=== PATIENT | male | born 1960 | race Caucasian/White ===

== ENCOUNTER 2016-07-08 21:49 | Emergency (ER) | payer MEDICAID ==
[2015-07-30 01:48] VITALS: BMI 25.1
[~2016-07-08 21:49] MED LIST: ALBUTEROL0.63 MG/3 INH; ASPIRIN EC81 M1 PO; ASPIRIN EC81 MG PO; ATIVAN1 MG PO; DEMEROL50 MG PO; EFFIENT10 MG PO; HYDROCODONE-APA1 TAB PO; ISOSORBIDE DINI30 MG PO; METOPROLOL TART50 MG PO; NORCO 10/325 TA1 TA1 PO; PLAVIX75 MG PO; PRAVASTATIN SOD10 MG PO; PROAIR HFA8.5 GM INH; XANAX1 MG PO; ZESTRIL10 MG PO; ZOLOFT25 MG; [UNRECOGNIZED DRUG - REMARK]
[2016-07-08 22:25] LABS: BASOPHILS 0.4 % (0.0-2.0); EOSINOPHILS 1.9 % (0-7); HEMOGLOBIN 14.9 g/dL (13.5-17.5); IMMATURE GRANULOCYTES 0.1 % (0-5); LYMPHOCYTES 13.3 % (15-50); MCH 29.7 pg (26.0-34.0); MCHC 33.9 g/dL (31.0-37.0); MCV 87.6 fL (80.0-100.0); MEAN PLATELET VOLUME 11.3 fL (7.4-10.4); MONOCYTES 8.9 % (2-11); NEUTROPHILS 75.4 % (40-80); RBC 5.02 10x6/uL (4.20-6.10); RDW 14.5 % (11.5-14.5); WBC 7.2 10x3/uL (4.8-10.8)
[2016-07-08 22:27] LABS: PLATELET COUNT 154 10x3/uL (130-400)
[2016-07-08 22:53] LABS: ALBUMIN 3.7 g/dL (3.4-5.0); ALKALINE PHOSPHATASE 65 U/L (46-116); ALT (SGPT) 20 U/L (10-68); BILIRUBIN - TOTAL 0.14 mg/dL (0.2-1.3); CALC OSMOLALITY 280 mosm/kg (275-300); CALCIUM 8.8 mg/dL (8.5-10.1); CHLORIDE - SERUM 104 mmol/L (98-107); CREATININE - SERUM 1.1 mg/dL (0.6-1.3); GLUCOSE 114 mg/dL (74-106); PROTEIN - SERUM 7.1 g/dL (6.4-8.2); SODIUM 140 mmol/L (136-145); UREA NITROGEN 16 mg/dL (7-18); eGFR NON AFRICAN AMERICAN 73 mL/min (90-120)
[2016-07-08 22:56] LABS: CHOL - HDL RATIO 5.6 ratio (2.3-4.9); CHOLESTEROL, TOTAL 201 mg/dL (0-200); CKMB 0.9 U/L (0.0-3.6); CREATINE KINASE 93 UL (21-232); HDL CHOLESTEROL 36 mg/dL (32-96); LDL CHOLESTEROL 130 mg/dL (0-100); LDL-HDL RATIO 3.6 ratio (1.5-3.5); TRIGLYCERIDE 176 mg/dL (30-200)
[2016-07-08 22:58] LABS: TROPONIN-I < 0.017 ng/mL (0.000-0.060)
== END 2016-07-08 23:56 | disposition home or self-care (01) ==
LOC: D.ER 21:49
PROVIDERS: Emergency Medicine
DX: R07.9 Chest pain, unspecified (principal); J40 Bronchitis, not specified as acute or chronic; I50.9 Heart failure, unspecified; J44.9 Chronic obstructive pulmonary disease, unspecified; F17.200 Nicotine dependence, unspecified, uncomplicated

== ENCOUNTER 2016-07-18 10:50 | Emergency (ER) | payer MEDICAID ==
[2015-07-30 01:48] VITALS: BMI 25.1
== END 2016-07-18 12:38 | disposition home or self-care (01) ==
LOC: D.ER 10:50
DX: S30.862A Insect bite (nonvenomous) of penis, initial encounter (principal); J44.9 Chronic obstructive pulmonary disease, unspecified; Z95.5 Presence of coronary angioplasty implant and graft

== ENCOUNTER → 2016-12-11 08:25 | Outpatient (CLI) | payer MEDICAID ==
[~2016-12-11] VITALS: Ht 175.3 cm; Wt 75.0 kg
--- NOTE | ~2016-12-11 | HEMODYNAMI ---
PATIENT:JUNO CARRION MEDICAL RECORD: [id number] : 56 LOCATION:[facility] ADMISSION DATE: 12/11/16 Generatedon:12/11/201610:43 Patient name: JUNO CARRION Patient #: [id number] SSN: DO B: 1960 Date of study: 12/11/2016 Page: Of Hemodynamic Procedure Report Patient Data Patient Demographics Procedure consent was obtained First Name: JUNO Gender: Male Last Name: MURALI : 1960 Middle Initial: S Age: 56 year(s) Patient #: [id number] Race: Additional ID: [id number] Contact details Address: [address] [place] [address] State: [place] City: [facility] Zip code: [address] Past Medical History Allergies Allergen Reaction Date Comments Reported Demerol 07/06/2014 Other allergy 01/23/2015 Polyester Other allergy 12/11/2016 demerol Admission Admission Data Admission Date: 12/11/2016 Admission Time: 8:25 Admit Source: Other Height (in.): 70 BSA: 1.88 (m2) Height (cm.): 177.8 BMI: 22.53 (kg/m2) Weight (lbs.): 157 Weight (kg.): 71.21 Lab Results Lab Result Date: 12/11/2016 Lab Result Time: 0:00 CBC Name Units Result Min Max Hemoglobin g/dl 15.7 --(--*-)-- 13.5 17.5 Procedure Procedure Types Cath Procedure Diagnostic Procedure LHC LHC w/Coronaries PCI Procedure Coronary Stent Initial Miscellaneous Procedures Moderate Sedation up to 15 minutes Procedure Description Procedure Date Procedure Date: 12/11/2016 Procedure Start Time: 10:22 Procedure End Time: 10:40 Procedure Staff Name Function Konrad Logan MD Performing Physician Lynne Estrada RT Scrub Paulie Maher RN Nurse Jaqueline Maher RT Monitor Procedure Data Cath Procedure Fluoroscopy Diagnostic fluoroscopy Total fluoroscopy Time: 4.1 time: 4.1 min min Diagnostic fluoroscopy Total fluoroscopy dose: 574 dose: 574 mGy mGy Contrast Material Contrast Material Type Amount (ml) Isovue 300 88 Entry Location Entry Primary Successful Side Size Upsize Upsize Entry Closure Hernandez ccessful Closure Location (Fr) 1 (Fr) 2 (Fr) Remarks Device Remarks Radial Right 6 Fr Mechanical tr b artery Short Compression Diagnostic catheters Device Type Used For End Catheter Placement Diagnostic Terumo 5Fr Procedure [place] 110cm catheter Procedure Complications No complications Procedure Medications Medication Administration Route Dosage Oxygen NC 2 l/min Lidocaine 2% added to field 20 Heparin Flush Bag added to field 2 bags (1000units/500ml NS) 0.9% NaCl I.V. 100 ml/hr Radial Cocktail I.A. 1 syringe (Verapomil 2mg/Nitro 400mcg/Heparin 1500units) Versed I.V. 2 mg Fentanyl I.V. 100 mcg Versed I.V. 2 mg Fentanyl I.V. 100 mcg Heparin Bolus I.V. 4000 units Integrilin (Bolus I.V. 6.8 ml 2mg/ml) Versed I.V. 1 mg Fentanyl I.V. 50 mcg Plavix P.O. 600 mg Hemodynamics Rest BSA: 1.88 (m2) HGB: 15.7 (g/dl) O2 Consumption: Estimated: 225.38 (ml/min) O2 Co nsumption indexed: Estimated:119.88 (ml/min/m) Heart Rate: 75 (bpm) Snapshots Pre Cath Intra NCS Post Cath Vital Signs Time Heart Resp SPO2 NIBP (mmHg) Rhythm Pain Sedation Rate (ipm) (%) Status Level (bpm) 9:45:37 76 18 98 161/104(133) NSR 0 (11) 10(A) , No pain 9:49:43 71 18 96 164/104(140) NSR 0 (11) 10(A) , No pain 9:53:59 74 17 94 140/98(115) NSR 0 (11) 10(A) , No pain 9:58:11 68 18 96 132/81(100) NSR 0 (11) 10(A) , No pain 10:02:22 71 19 97 132/76(108) NSR 0 (11) 10(A) , No pain 10:06:30 74 17 97 127/82(104) NSR 0 (11) 10(A) , No pain 10:10:40 73 15 97 122/75(93) NSR 0 (11) 10(A) , No pain 10:14:44 73 16 97 119/82(95) NSR 0 (11) 10(A) , No pain 10:18:48 71 17 96 115/79(95) NSR 0 (11) 10(A) , No pain 10:22:51 74 15 95 115/76(91) NSR 0 (11) 10(A) , No pain 10:26:57 76 16 94 94/70(82) NSR 0 (11) 9(A) , No pain 10:30:59 78 16 94 103/60(72) NSR 0 (11) 9(A) , No pain 10:35:03 77 17 95 106/66(83) NSR 0 (11) 9(A) , No pain 10:39:04 77 16 96 105/72(87) NSR 0 (11) 10(A) , No pain Medications Time Medication Route Dose Verified Delivered Reason Note s Effectiveness by by 9:44:55 Oxygen NC 2 l/min Konrad Buffie used for Desmond Maher RN procedure 9:45:00 Lidocaine 2% added 20ml Konrad Buffie used for to vial Desmond Maher RN procedure field 9:45:06 Heparin Flush added 2 bags Konrad Buffie used for Bag to Desmond Maher RN procedure (1000units/500ml field NS) 9:45:14 0.9% NaCl I.V. 100 Konrad Buffie Per physician ml/hr Desmond Maher RN 10:20:13 Versed I.V. 2 mg Konrad Buffie for sedation Desmond Maher RN 10:20:18 Fentanyl I.V. 100 mcg Konrad Buffie for sedation Desmond Maher RN 10:24:22 Versed I.V. 2 mg Konrad Buffie for sedation Desmond Maher RN 10:24:26 Fentanyl I.V. 100 mcg Konrad Buffie for sedation Desmond Maher RN 10:25:15 Radial Cocktail I.A. 1 Konrad Konrad for (Verapomil syringe Desmond Logan MD vasodilation 2mg/Nitro 400mcg/Heparin 1500units) 10:28:16 Versed I.V. 1 mg Konrad Apodaca for sedation Desmond Maher RN 10:28:20 Fentanyl I.V. 50 mcg Konrad Apodaca for sedation Desmond Maher RN 10:30:56 Heparin Bolus I.V. 4000 Konrad Apodaca for veri fied units Desmond Maher RN anticoagulation with dr logan 10:32:38 Integrilin I.V. 6.8 ml Konrad donohue wast ed (Bolus 2mg/ml) Desmond Maher RN antiplatelet 3.2 ml therapy of vial 10:39:29 Plavix P.O. 600 mg Konrad Maher RN antiplatelet therapy Procedure Log Time Note 9:30:59 Admit Source: Other 9:31:14 Patient Height : 177.8 cm 9:31:21 Patient Weight : 71.21 kg 9:32:32 Diagnostic Cath status Elective 9:32:34 Paulie Maher RN sent for patient. Start room use. 9:32:36 Time tracking: Regular hours 9:32:41 Plan of Care:Hemodynamics will remain stable., Cardiac rhythm will remain stable., Comfort level will be maintained., Respiratory function will remain adequate., Patient/ family verbilizes understanding of procedure., Procedure tolerated without complication., Recovers from procedure without complications.. 9:40:41 Patient received from Pre/Post Procedure Room to CCL 2 Alert and oriented. Tansferred to table in Supine position. 9:44:55 Oxygen 2 l/min NC was administered by Paulie Maher RN; used for procedure; 9:45:00 Lidocaine 2% 20ml vial added to field was administered by Paulie Maher RN; used for procedure; 9:45:06 Heparin Flush Bag (1000units/500ml NS) 2 bags added to field was administered by Paulie Maher RN; used for procedure; 9:45:14 0.9% NaCl 100 ml/hr I.V. was administered by Paulie Maher RN; Per physician; 9:48:30 Warm blankets applied, and angel hugger turned on for patient comfort. 9:48:30 Correct patient and procedure confirmed by team. 9:48:32 Signed procedure consent form obtained from patient. 9:48:33 ECG and BP/O2 sat monitors applied to patient. 9:48:37 Vital chart was started 9:48:38 Baseline sample Acquired. 9:48:43 Rhythm: sinus rhythm 9:48:45 Full Disclosure recording started 9:49:03 H&P Date Dictated: 12/05/2016 Within 30 days and on chart., H&P Addendum completed by physician on day of procedure. (MUST COMPLETE FOR ALL OUTPATIENTS). 9:49:05 Pre-procedure instructions explained to patient. 9:49:08 Pre-op teaching completed and patient verbalized understanding. 9:49:09 Family in waiting room. 9:49:11 Patient NPO since Midnight. 9:49:29 Patient allergic to Other allergydemerol 9:49:32 Is the patient allergic to Iodine/contrast media? No. 9:49:37 Snore? Yes 9:49:41 Dentures? No ? 9:49:56 Airway obstruction? Yes COPD, ASTHMA 9:50:05 Is patient on blood thinner?No 9:50:07 Patient diabetic? No. 9:50:12 Sleep apnea? No 9:50:40 Patient pain scale 0/10 ?. 9:50:46 IV patent on arrival in left forearm with 0.9% NaCl at [facility]. 9:54:17 Lab Result : Hemoglobin 15.7 g/dl 9:56:12 Lab results completed and on chart. 9:56:17 Right Radial & Left Groin area was prepped with chlora-prep and draped in sterile fashion 9:56:19 Alarms reviewed by R. N. 9:56:20 Sharps counted by scrub and verified by R.N. 9:56:21 Physician paged 9:56:22 Physician arrived 9:56:28 Use device set Radial Dx 9:56:30 Acist Syringe opened to sterile field. 9:56:30 Medline Cath Pack opened to sterile field. 9:56:31 Bag Decanter opened to sterile field. 9:56:32 St Lyle 260cm J .035 wire opened to sterile field. 9:56:32 Acist Hand Control opened to sterile field. 9:56:32 Acist Manifold opened to sterile field. 9:56:33 Tegaderm 4 x 4 opened to sterile field. 9:56:33 MBrace Wrist Support opened to sterile field. 9:56:36 Terumo 6Fr Slender Glidesheath opened to sterile field. 9:57:36 Zero performed for pressure channel P1 10:: --------ALL STOP TIME OUT------ ::03 Final Timeout: patient, procedure, and site verified with staff and physician. All members of the team are in agreement. 10:20:06 Left Radial & Left Groin site verified by team. 10:20: Physical assessment completed. ASA score P 2 - A patient with mild systemic disease as per Konrad Logan MD. :: Versed 2 mg I.V. was administered by Paulie Maher RN; for sedation; :: Sedation plan: IV Moderate Sedation Versed, Fentanyl 10::18 Fentanyl 100 mcg I.V. was administered by Paulie Maher RN; for sedation; :: Procedure started. 10:: Local anesthetic to right radial artery with Lidocaine 2% by Konrad Logan MD.INITIAL ACCESS ONLY 10::33 A 6 Fr Short sheath was inserted into the Right Radial artery 10:: Versed 2 mg I.V. was administered by Paulie Maher RN; for sedation; :: Fentanyl 100 mcg I.V. was administered by Paulie Maher RN; for sedation; 10:25:15 Radial Cocktail (Verapomil 2mg/Nitro 400mcg/Heparin 1500units) 1 syringe I.A. was administered by Konrad Logan MD; for vasodilation; 10:25: A Diagnostic Tower Paddle Boardsumo 5Fr [place] 110cm catheter was advanced over the wire and used for Procedure. 10:25:31 LV gram done using ALATORRE 10::22 EF : 55 % 10::25 LCA angiography performed. 10:27:13 RCA angiography performed. 10:28:16 Versed 1 mg I.V. was administered by Paulie Maher RN; for sedation; ::20 Fentanyl 50 mcg I.V. was administered by Paulie Maher RN; for sedation; 10::56 Catheter removed. 10:30:45 Merit BasixCompak Inflation Kit opened to sterile field. 10:30:46 [place] Sci Choice PT Extra Support J 300cm .014 gu opened to sterile field. 10:30:46 Q-Layertronic Launcher 6Fr AR 2.0 guide catheter opened to sterile field. 10:30:51 Proceeding to intervention. 10:30:56 Heparin Bolus 4000 units I.V. was administered by Paulie Maher RN; for anticoagulation; verified with dr logan 10:31:00 6 Fr AR 2 guide catheter was inserted over the wire 10:32:38 Integrilin (Bolus 2mg/ml) 6.8 ml I.V. was administered by Paulie Maher RN; for antiplatelet therapy; wasted 3.2 ml of vial 10:33:46 choice pt wire advanced. 10:33:48 Wire advanced across lesion. 10:34:35 Inflation Number: 1 A [place] OTW 3.0 x 12 stent was prepped and advanced across the Mid RCA. The stent was deployed at 21 JOSEPHINE for 0:10 (min:sec). 10:35:31 Stent catheter was removed intact over wire. 10:35:32 Wire removed. 10:35:32 Guide catheter removed. 10:36:15 Procedure ended.(Physican Out) 10:36:30 Fluoroscopy time 04.10 minutes. 10:36:36 Fluoroscopy dose: 574 mGy 10:36:36 Flurop Dose total: 574 10:36:40 Contrast amount:Isovue 300 88ml. 10:36:41 Sharps counted by scrub and verified by R.N. 10:36:51 Insertion/operative site no bleeding no hematoma. 10:37:10 Terumo TR Band Standard opened to sterile field. 10:37:35 Sheath removed intact; hemostasis achieved with Mechanical Compression to the Right Radial artery. 10:38:12 TR band inflated with 12cc of air. 10:38:19 Post Procedure Pulses reassessed and unchanged 10:38:25 Post-procedure physical assessment completed. ASA score P 2 - A patient with mild systemic disease as per Konrad Logan MD. 10:38:33 Post procedure rhythm: sinus rhythm 10:38:36 Post procedure instruction explained to patient.Patient verbalizes understanding. 10:39:05 Procedure type changed to Cath procedure, Diagnostic procedure, LHC, LHC w/Coronaries, PCI procedure, Coronary Stent Initial, Miscellaneous Procedures, Moderate Sedation up to 15 minutes 10:39:27 Procedure and supply charges have been captured, reviewed, submitted and are correct. 10:39:29 Plavix 600 mg P.O. was administered by Paulie Maher RN; for antiplatelet therapy; 10:39:52 Procedure Complication : No complications 10:39:55 Vital chart was stopped 10:39:55 See physician's report for complete and final results. 10:39:59 Patient transfered to Pre/Post Procedure Room with Stretcher. 10:40:01 Procedure ended. 10:40:01 Full Disclosure recording stopped 10:40:17 End room use (Document Last) 10:40:23 ACC-PCI Only Patient was given prescriptions, or instructed by Konrad Logan MD to start/continue the following medications upon discharge: Plavix Intervention Summary Intervention Notes Time ActionType Lesion and Equipment Action# Pressure Duration Attributes Used 10:34:35 Place stent Mid RCA Edmundo OTW 1 21 00:10 3.0 x 12 stent Device Usage Item Name Manufacture Quantity Catalog Number Hospital Part Current Minim al Lot# / Charge Number Stock Stock Serial# Code Acist Acist 1 [id number] [id number] 112686 434605 20 Syringe Medical Systems Inc Medline Cardinal 1 [id number] 656076 42809 425846 5 Cath Pack Health Bag Microtek 1 2002S 921182 80529 164051 [address] Lyle St Lyle 1 252899 309983 451036 141493 30 260cm J .035 wire Acist Hand Acist 1 94597 361038 827832 872598 5 Control Medical Systems Inc Acist Acist 1 17742 289706 282168 981234 5 Manifold Medical Systems Inc Tegaderm 4 3M 1 1626W 540668 079277 426719 5 x 4 MBrace Advanced 1 140-0250-00 619842 92250 543419 5 Wrist Vascular Support Dynamics Terumo 6Fr Terumo 1 [id number] 790327 505604 368534 40 Slender Glidesheath Diagnostic Terumo 1 72-9118 842260 609651 947724 5 Terumo 5Fr [place] 110cm catheter Merit Merit 1 [id number] 885336 804533 205139 15 BasixCvergenx Medical Inflation Kit [place] Sci [place] 1 [id number] 410399 065855 656653 5 Choice PT Scientific Extra Support J 300cm .014 gu Medtronic Medtronic 1 [id number] 553686 45311 486532 1 Launcher 6Fr AR 2.0 guide catheter Marietta OTW Medtronic 1 [id number] 608332 993390 140131 5 [id number] 3.0 x 12 stent Terumo TR Terumo 1 [id number] 859966 412467 045399 40 Band Standard Signature Audit [place] Stage Time Signature Unsigned Intra-Procedure 12/11/2016 Jaqueline Maher 10:43:05 AM RT(R) Signatures Monitor : Jaqueline Maher Signature : RT Date : Time : [facility] [address] [id number]
--- NOTE | ~2016-12-11 | OP ---
PATIENT NAME: JUNO CARRION MEDICAL RECORD: [id number] :56 LOCATION:D.[facility] ADMISSION DATE: SURGEON: TRESSA NUNEZ MD DATE OF OPERATION: 12/11/2016 PROCEDURES: 1. PTCA stent RCA. 2. Selective coronary angiography. 3. Left heart catheterization. 4. Left ventriculogram. INDICATION: Angina and coronary artery disease. PROCEDURE IN DETAIL: After informed consent was obtained and after a detailed explanation of risks, benefits as well as alternative therapies, the patient elected to proceed with angiogram and angioplasty. The right radial area was prepped and draped in normal sterile fashion. The right radial artery was cannulated via modified Seldinger technique with placement of 6-Bolivian sheath. All catheters exchanged through this sheath. FINDINGS: The left ventriculogram was performed in standard 30-degree ALATORRE view, reveals preserved cardiac wall motion, ejection fraction estimated 60%. SELECTIVE CORONARY ANGIOGRAPHY: 1. Left main showed no significant angiographic disease. 2. Left anterior descending has previously placed stent, stent is widely patent with no significant restenosis. No disease elsewise. 3. The left circumflex shows moderate irregularities, but no flow-limiting stenosis. 4. The right coronary has previously placed stents with up to 70% in-stent restenosis in the mid vessel. PTCA STENT OF THE RIGHT CORONARY: The stent used was 3.0 x 12 mm Kiefer. Result was 0% residual stenosis. OVERALL IMPRESSION: Successful percutaneous transluminal coronary angioplasty stent of the RCA going from 70% in-stent restenosis to 0% residual stenosis. TRANSINT:[id number] Voice Confirmation ID: [id number] DOCUMENT ID: [id number] TRESSA NUNEZ MD CC: [id number] DICTATION DATE: 12/11/16 1039 GENERAL LABORER: 12/11/16 1049 REG [facility] [address] [place] [address]
[2016-12-11 09:09] VITALS: BP 147/89; Ht 175.3 cm; Wt 75.0 kg
[2016-12-11 09:25] LABS: BASOPHILS 0.6 % (0-2); EOSINOPHILS 1.6 % (0-7); HEMATOCRIT 46.1 % (42.0-54.0); HEMOGLOBIN 15.7 g/dL (13.5-17.5); IMMATURE GRANULOCYTES 0.1 % (0-5); LYMPHOCYTES 24.1 % (15-50); MCHC 34.1 g/dL (31.0-37.0); MCV 88.1 fL (80.0-100.0); MEAN PLATELET VOLUME 11.3 fL (7.4-10.4); MONOCYTES 7.5 % (2-11); NEUTROPHILS 66.1 % (40-80); PLATELET COUNT 173 10x3/uL (130-400); RBC 5.23 10x6/uL (4.20-6.10); RDW 14.4 % (11.5-14.5); WBC 6.7 10x3/uL (4.8-10.8)
--- NOTE | 2016-12-11 09:40 | NUR ---
0940 HOLD Beneq. PT TOOK OWN DOSE OF XANAX THIS AM PRIOR TO ARRIVAL.
[2016-12-11 09:43] LABS: CALC OSMOLALITY 286 mosm/kg (275-300); CALCIUM 9.1 mg/dL (8.5-10.1); CARBON DIOXIDE 27.1 mmol/L (21.0-32.0); CHLORIDE - SERUM 106 mmol/L (98-107); CREATININE - SERUM 0.9 mg/dL (0.6-1.3); GLUCOSE 100 mg/dL (74-106); POTASSIUM - SERUM 4.5 mmol/L (3.5-5.1); SODIUM 143 mmol/L (136-145); UREA NITROGEN 18 mg/dL (7-18); eGFR NON AFRICAN AMERICAN > 90 mL/min (90-120)
--- NOTE | 2016-12-11 11:19 | NUR ---
1115 SITTING UP IN BED EATING TURKEY TRAY AND SIPPING SODA. R WRIST TR BAND C/D/I WITH NO HEMATOMA OR BLEEDING. NSR RATE 75 W NO C/O CHEST PAIN. PULSES PALP X 4.
--- NOTE | 2016-12-11 13:51 | NUR ---
1145 RESTING WITH EYES CLOSED. R WRIST TR BAND C/D/I WITH NO HEMATOMA OR BLEEDING. 1230 SITTING UP IN BED. R WRIST TR REMAINS C/D/I. VITALS ALL WNL
--- NOTE | 2016-12-11 14:08 | NUR ---
2CC AIR REMOVED FROM R WRIST TR BAND. WILL MONITOR FOR BLEEDING/HEMATOMA.
--- NOTE | 2016-12-11 14:26 | NUR ---
2CC AIR REMOVED FROM R WRIST TR BAND, PIV REMOVED FROM LEFT HAND WITH BANDAID APPLIED.
--- NOTE | 2016-12-11 14:43 | NUR ---
REMAINDER OF AIR REMOVED FROM R WRIST TR BAND. TEGADERM AND 2X2 APPLIED. BRACE REMAINS IN PLACE. D/C INSTRUCTIONS DISCUSSED WITH PATIENT, VERABLIZED UNDERSTANDING. WHEELED OUT VIA WHEELCHAIR.
== END | disposition home or self-care (01) ==
LOC: D.CATH 08:25
PROVIDERS: Internal Medicine Interventional Cardiology
DX: I25.119 Atherosclerotic heart disease of native coronary artery with unspecified angina pectoris (principal); I10 Essential (primary) hypertension; F17.200 Nicotine dependence, unspecified, uncomplicated; Z01.812 Encounter for preprocedural laboratory examination

== ENCOUNTER 2017-01-27 05:38 | Emergency (ER) | payer MEDICAID ==
[2016-12-11 09:09] VITALS: BMI 24.4
[2017-01-27 06:37] LABS: UDS - AMPHET NEGATIVE QUAL (NEGATIVE); UDS - BARB NEGATIVE QUAL (NEGATIVE); UDS - BENZO POSITIVE QUAL (NEGATIVE); UDS - COCAINE NEGATIVE QUAL (NEGATIVE); UDS - OPIATE NEGATIVE QUAL (NEGATIVE); UDS - PCP NEGATIVE QUAL (NEGATIVE); UDS - THC POSITIVE QUAL (NEGATIVE)
[2017-01-27 06:50] LABS: BASOPHILS 0.6 % (0-2); EOSINOPHILS 1.9 % (0-7); HEMATOCRIT 46.4 % (42.0-54.0); HEMOGLOBIN 15.3 g/dL (13.5-17.5); IMMATURE GRANULOCYTES 0.1 % (0-5); LYMPHOCYTES 22.8 % (15-50); MCH 29.6 pg (26.0-34.0); MCV 89.7 fL (80.0-100.0); MEAN PLATELET VOLUME 11.2 fL (7.4-10.4); MONOCYTES 7.2 % (2-11); NEUTROPHILS 67.4 % (40-80); RBC 5.17 10x6/uL (4.20-6.10); RDW 14.6 % (11.5-14.5); WBC 6.8 10x3/uL (4.8-10.8)
[2017-01-27 06:56] LABS: APPEARANCE CLEAR (CLEAR); COLOR YELLOW (YELLOW); GLUCOSE 50 mg/dL (NEGATIVE); KETONE SMALL mg/dL (NEGATIVE); NITRITE NEGATIVE (NEGATIVE); PROTEIN 1+ mg/dL (NEGATIVE); SPECIFIC GRAVITY 1.015 (1.005-1.020)
[2017-01-27 06:57] LABS: BACTERIA FEW /hpf (NONE SEEN); BILIRUBIN NEGATIVE (NEGATIVE); EPITHELIAL CELLS RARE /hpf (0-5); MUCUS <1+ /lpf (NONE SEEN); RED CELLS - URINE 0-5 /hpf (0-5); UROBILINOGEN NORMAL (NORMAL); WHITE CELLS - URINE 0-5 /hpf (0-5)
[2017-01-27 07:03] LABS: PLATELET COUNT 220 10x3/uL (130-400)
[2017-01-27 07:08] LABS: INR 0.86 (0.85-1.17); PROTIME 11.6 SECONDS (11.6-15.0)
[2017-01-27 07:12] LABS: ALBUMIN 3.7 g/dL (3.4-5.0); ANION GAP 7.8 mmol/L (8-16); BILIRUBIN - TOTAL 0.18 mg/dL (0.2-1.3); CARBON DIOXIDE 30.6 mmol/L (21.0-32.0); CREATININE - SERUM 1.1 mg/dL (0.6-1.3); MAGNESIUM - SERUM 2.2 mg/dL (1.8-2.4); POTASSIUM - SERUM 4.4 mmol/L (3.5-5.1); PROTEIN - SERUM 7.2 g/dL (6.4-8.2)
== END 2017-01-27 07:50 | disposition left against medical advice (07) ==
LOC: D.ER 05:38
PROVIDERS: Emergency Medicine
DX: S09.90XA Unspecified injury of head, initial encounter (principal); W17.89XA Other fall from one level to another, initial encounter; Y93.89 Activity, other specified; Y92.89 Other specified places as the place of occurrence of the external cause; R51 Headache; J44.9 Chronic obstructive pulmonary disease, unspecified; F17.200 Nicotine dependence, unspecified, uncomplicated

== ENCOUNTER 2017-02-27 10:32 | Emergency (ER) | payer MEDICAID ==
[2016-12-11 09:09] VITALS: BMI 24.4
== END 2017-02-27 12:17 | disposition home or self-care (01) ==
LOC: D.ER 10:32
DX: Z91.81 History of falling (principal); R51 Headache; Z86.79 Personal history of other diseases of the circulatory system; F17.200 Nicotine dependence, unspecified, uncomplicated; J44.9 Chronic obstructive pulmonary disease, unspecified

== ENCOUNTER 2017-04-05 08:33 | Emergency (ER) | payer MEDICAID ==
[2016-12-11 09:09] VITALS: BMI 24.4
[2017-04-05 09:20] LABS: BASOPHILS 0.7 % (0-2); EOSINOPHILS 1.6 % (0-7); HEMATOCRIT 45.7 % (42.0-54.0); HEMOGLOBIN 15.6 g/dL (13.5-17.5); IMMATURE GRANULOCYTES 0.1 % (0-5); LYMPHOCYTES 29.4 % (15-50); MCH 29.9 pg (26.0-34.0); MCHC 34.1 g/dL (31.0-37.0); MCV 87.7 fL (80.0-100.0); MEAN PLATELET VOLUME 11.5 fL (7.4-10.4); MONOCYTES 6.6 % (2-11); NEUTROPHILS 61.6 % (40-80); PLATELET COUNT 209 10x3/uL (130-400); RBC 5.21 10x6/uL (4.20-6.10); WBC 7.1 10x3/uL (4.8-10.8)
[2017-04-05 09:38] LABS: ALBUMIN 3.8 g/dL (3.4-5.0); ALKALINE PHOSPHATASE 74 U/L (46-116); ALT (SGPT) 16 U/L (10-68); BILIRUBIN - TOTAL 0.32 mg/dL (0.2-1.3); CALC OSMOLALITY 277 mosm/kg (275-300); CALCIUM 9.2 mg/dL (8.5-10.1); CHLORIDE - SERUM 102 mmol/L (98-107); GLUCOSE 145 mg/dL (74-106); PROTEIN - SERUM 7.3 g/dL (6.4-8.2); SODIUM 137 mmol/L (136-145); UREA NITROGEN 15 mg/dL (7-18); eGFR NON AFRICAN AMERICAN 81 mL/min (90-120)
[2017-04-05 09:39] LABS: POTASSIUM - SERUM 4.2 mmol/L (3.5-5.1)
[2017-04-05 09:50] LABS: CHOL - HDL RATIO 4.6 ratio (2.3-4.9); CHOLESTEROL, TOTAL 196 mg/dL (0-200); CKMB 0.7 U/L (0.0-3.6); CREATINE KINASE 97 UL (21-232); HDL CHOLESTEROL 43 mg/dL (32-96); LDL CHOLESTEROL 142 mg/dL (0-100); LDL-HDL RATIO 3.3 ratio (1.5-3.5); TRIGLYCERIDE 58 mg/dL (30-200)
[2017-04-05 09:51] LABS: TROPONIN-I < 0.017 ng/mL (0.000-0.060)
== END 2017-04-05 10:55 | disposition home or self-care (01) ==
LOC: D.ER 08:33
PROVIDERS: Emergency Medicine
DX: I25.10 Atherosclerotic heart disease of native coronary artery without angina pectoris (principal); R07.9 Chest pain, unspecified; H57.11 Ocular pain, right eye; J44.9 Chronic obstructive pulmonary disease, unspecified; F17.200 Nicotine dependence, unspecified, uncomplicated

== ENCOUNTER 2017-07-11 22:07 | Emergency (ER) | payer MEDICAID ==
[2016-12-11 09:09] VITALS: BMI 24.4
== END 2017-07-12 01:15 | disposition home or self-care (01) ==
LOC: D.ER 22:07
DX: M50.30 Other cervical disc degeneration, unspecified cervical region (principal); J44.9 Chronic obstructive pulmonary disease, unspecified; I25.10 Atherosclerotic heart disease of native coronary artery without angina pectoris; F17.200 Nicotine dependence, unspecified, uncomplicated

== ENCOUNTER 2017-08-09 02:51 | Observation (INO) | payer MEDICAID ==
[~2017-08-09] VITALS: Ht 175.3 cm; Wt 65.8 kg
--- NOTE | ~2017-08-09 | HP ---
PATIENT: JUNO MCDONALD MEDICAL RECORD: [id number] ACCOUNT: [id number] LOCATION:[facility].2113 : 56 ADMISSION DATE: 08/09/17 HISTORY AND PHYSICAL EXAMINATION ADMITTING DIAGNOSES: 1. Angina, chronic, stable. 2. Hypertension. 3. Coronary artery disease. 4. Previous PTCA stent. 5. Hypertension. 6. COPD. 7. Smoking history. 8. Chronic neck pain. HISTORY OF PRESENT ILLNESS: Mr. Mcdonald presents with chest pain. It was secondary to his neck pain. With the neck pain, his hypertension goes up. He has been out of his pain medications for his neck. With pain medication, his neck pain resolved. His blood pressure went down. His chest pain resolved. He has no EKG changes. Troponin is normal. PHYSICAL EXAMINATION: GENERAL APPEARANCE: Well-nourished, well-developed, appears stated age. Level of distress, comfortable. PSYCHIATRIC: Mental status, alert, normal affect. Orientation, oriented to time, place and person. EYES: Lids and conjunctiva, noninjected. No discharge, no pallor. ENT: Lips, teeth, gums, normal dentition. Oropharynx, no cyanosis, no pallor. NECK: Carotid arteries, bilateral normal upstroke, no bruits, no thrills. JUGULAR VEINS: No jugular venous pressure or distention. CERVICAL LYMPH NODES: Nontender, nonenlarged. THYROID: Not enlarged. Nontender. No nodules. LUNGS: Respiratory effort, unlabored. CHEST: Normal curvature. No thoracic deformity. No chest wall tenderness. Percussion, resonant. Auscultation, clear. No wheezes, no rales, no rhonchi. CARDIOVASCULAR: Precordial exam, nondisplaced. No heaves or pericardial thrills. Rate and rhythm, regular. Heart sounds, normal S1, normal S2. No S3, no gallop, no rub. Systolic murmur, not heard. Diastolic murmur, not heard. EXTREMITIES: No cyanosis, no edema. Peripheral pulses, full and equal in all extremities, except as noted. No bruits appreciated. ABDOMEN: Soft, nondistended. Normal aorta. No bruit. Nontender. No masses. Liver, nontender, no hepatomegaly. Spleen, nontender, no splenomegaly. MUSCULOSKELETAL: No joint tenderness. No joint swelling. No erythema. NEUROLOGICAL: Normal gait, normal strength, normal tone. SKIN: Warm and dry. OVERALL IMPRESSION: Chest pain related to hypertension from his neck pain. At this time, we will just reinstate his [place] for temporary prescription. Follow up with [facility] as previously scheduled. TRANSINT:[id number] Voice Confirmation ID: [id number] DOCUMENT ID: [id number] HISTORY AND PHYSICAL [id number] JUNO MCDONALD JEFFREY MD at 1629 CC: [id number] DICTATION DATE: 08/09/17 08 CATTLE BROKER: 08/09/17 1145 DIS IN 08/09/17 [place] [address] [id number] [place] [id number]
[2017-08-09 03:18] LABS: BASOPHILS 1.1 % (0-2); EOSINOPHILS 3.2 % (0-7); HEMATOCRIT 48.1 % (42.0-54.0); HEMOGLOBIN 16.3 g/dL (13.5-17.5); IMMATURE GRANULOCYTES 0.1 % (0-5); LYMPHOCYTES 28.1 % (15-50); MCH 29.8 pg (26.0-34.0); MCHC 33.9 g/dL (31.0-37.0); MCV 87.9 fL (80.0-100.0); MEAN PLATELET VOLUME 10.5 fL (7.4-10.4); MONOCYTES 6.8 % (2-11); NEUTROPHILS 60.7 % (40-80); PLATELET COUNT 227 10x3/uL (130-400); RBC 5.47 10x6/uL (4.20-6.10); RDW 14.1 % (11.5-14.5); WBC 8.4 10x3/uL (4.8-10.8)
[2017-08-09 03:45] LABS: ALBUMIN 3.7 g/dL (3.4-5.0); ALKALINE PHOSPHATASE 95 U/L (46-116); ALT (SGPT) 21 U/L (10-68); CALC OSMOLALITY 279 mosm/kg (275-300); CARBON DIOXIDE 29.5 mmol/L (21.0-32.0); CHLORIDE - SERUM 104 mmol/L (98-107); GLUCOSE 119 mg/dL (74-106); POTASSIUM - SERUM 4.4 mmol/L (3.5-5.1); PROTEIN - SERUM 7.4 g/dL (6.4-8.2); SODIUM 139 mmol/L (136-145); UREA NITROGEN 15 mg/dL (7-18); eGFR NON AFRICAN AMERICAN 81 mL/min (90-120)
[2017-08-09 03:47] LABS: CHOL - HDL RATIO 4.3 ratio (2.3-4.9); CHOLESTEROL, TOTAL 184 mg/dL (0-200); CKMB 0.7 U/L (0.0-3.6); CREATINE KINASE 72 UL (21-232); HDL CHOLESTEROL 43 mg/dL (32-96); LDL CHOLESTEROL 119 mg/dL (0-100); LDL-HDL RATIO 2.8 ratio (1.5-3.5); TRIGLYCERIDE 113 mg/dL (30-200); TROPONIN-I < 0.017 ng/mL (0.000-0.060)
[2017-08-09 05:17] VITALS: BP 123/86; Ht 175.3 cm; Wt 65.8 kg
[2017-08-09] MEDS ORDERED: CYCLOBENZAPRINE10 MG PO (06:34)
[2017-08-09 07:32] LABS: CREATINE KINASE 150 UL (21-232); TROPONIN-I < 0.017 ng/mL (0.000-0.060)
[2017-08-09 08:29] VITALS: BP 128/81
== END 2017-08-09 09:31 | disposition home or self-care (01) ==
LOC: D.ER 02:51 → OBSVTIME 03:19 → D.EDHOLD 03:19 → D.M2 04:22
PROVIDERS: Emergency Medicine
DX: M54.2 Cervicalgia (principal); G89.29 Other chronic pain; I10 Essential (primary) hypertension; I25.119 Atherosclerotic heart disease of native coronary artery with unspecified angina pectoris; Z95.5 Presence of coronary angioplasty implant and graft; J44.9 Chronic obstructive pulmonary disease, unspecified; Z87.891 Personal history of nicotine dependence

== ENCOUNTER → 2017-08-26 15:32 | Outpatient (CLI) | payer MEDICAID ==
[2017-08-09 05:17] VITALS: BMI 21.4
[~2017-08-26 15:32] MED LIST changes: +CYCLOBENZAPRINE10 MG PO
== END | disposition home or self-care (01) ==
LOC: D.MRI 15:32
DX: M54.12 Radiculopathy, cervical region (principal)

== ENCOUNTER 2017-08-27 04:37 | Observation (INO) | payer MEDICAID ==
[2017-08-09 05:17] VITALS: BMI 21.4
--- NOTE | ~2017-08-27 | CN ---
PATIENT NAME:JUNO CARRION MEDICAL RECORD: [id number] : 56 [facility] ADMIT DATE: 08/27/17 ACCOUNT: [id number] CONSULTING PHYSICIAN: TRESSA NUNEZ MD REFERRING PHYSICIAN: TRESSA NUNEZ MD DATE OF CONSULTATION: 08/27/2017 ADMITTING DIAGNOSES: 1. Chronic head and neck pain. 2. Angina. 3. Coronary artery disease. 4. Hypertension. 5. Previous multivessel percutaneous transluminal coronary angioplasty stent. HISTORY OF PRESENT ILLNESS: This is a gentleman known to us with a past history of coronary artery disease. Last cardiac intervention was in December. He presents with chest pain. His EKG is normal. Troponin is normal. He had episodes of chest pain in conjunction with headaches approximately 2 weeks ago. His pain was under control. His blood pressure dropped. His chest pain went away. He had very similar episode. Now, he has been seen by Dr. Calvert for this. With pain control of his headaches, his blood pressure decreases, his pain resolved. This is very similar episode that he had last night. PHYSICAL EXAMINATION: GENERAL APPEARANCE: Well-nourished, well-developed, appears stated age. Level of distress, comfortable. PSYCHIATRIC: Mental status, alert, normal affect. Orientation, oriented to time, place and person. EYES: Lids and conjunctiva, noninjected. No discharge, no pallor. ENT: Lips, teeth, gums, normal dentition. Oropharynx, no cyanosis, no pallor. NECK: Carotid arteries, bilateral normal upstroke, no bruits, no thrills. JUGULAR VEINS: No jugular venous pressure or distention. CERVICAL LYMPH NODES: Nontender, nonenlarged. THYROID: Not enlarged. Nontender. No nodules. LUNGS: Respiratory effort, unlabored. CHEST: Normal curvature. No thoracic deformity. No chest wall tenderness. Percussion, resonant. Auscultation, clear. No wheezes, no rales, no rhonchi. CARDIOVASCULAR: Precordial exam, nondisplaced. No heaves or pericardial thrills. Rate and rhythm, regular. Heart sounds, normal S1, normal S2. No S3, no gallop, no rub. Systolic murmur, not heard. Diastolic murmur, not heard. EXTREMITIES: No cyanosis, no edema. Peripheral pulses, full and equal in all extremities, except as noted. No bruits appreciated. ABDOMEN: Soft, nondistended. Normal aorta. No bruit. Nontender. No masses. Liver, nontender, no hepatomegaly. Spleen, nontender, no splenomegaly. MUSCULOSKELETAL: No joint tenderness. No joint swelling. No erythema. NEUROLOGICAL: Normal gait, normal strength, normal tone. SKIN: Warm and dry. OVERALL IMPRESSION: Angina in association with hypertension in association with pain. At this time, with normal troponin and normal EKG, we will not proceed with repeat coronary angiography. Pain control for the headache. Follow up with Dr. Calvert, will follow up with [facility] as previously scheduled. TRANSINT:[id number] Voice Confirmation ID: [id number] DOCUMENT ID: [id number] CONSULT REPORT [id number] JUNO CARRION JEFFREY MD at 1218 CC: [id number] DICTATION DATE: 08/27/17 0808 BAD CREDIT COLLECTOR: 08/27/17 1221 DIS IN 08/27/17 [id number] [place] [address]
[2017-08-27 05:20] LABS: BASOPHILS 0.4 % (0-2); EOSINOPHILS 1.9 % (0-7); HEMATOCRIT 44.1 % (42.0-54.0); IMMATURE GRANULOCYTES 0.1 % (0-5); LYMPHOCYTES 19.8 % (15-50); MCH 29.5 pg (26.0-34.0); MCV 86.8 fL (80.0-100.0); MEAN PLATELET VOLUME 10.3 fL (7.4-10.4); MONOCYTES 5.3 % (2-11); NEUTROPHILS 72.5 % (40-80); PLATELET COUNT 222 10x3/uL (130-400); RBC 5.08 10x6/uL (4.20-6.10); RDW 14.1 % (11.5-14.5); WBC 7.2 10x3/uL (4.8-10.8)
[2017-08-27 05:39] LABS: ALBUMIN 3.3 g/dL (3.4-5.0); ALKALINE PHOSPHATASE 82 U/L (46-116); ALT (SGPT) 16 U/L (10-68); CALC OSMOLALITY 285 mosm/kg (275-300); CALCIUM 8.9 mg/dL (8.5-10.1); CARBON DIOXIDE 32.8 mmol/L (21.0-32.0); CHLORIDE - SERUM 106 mmol/L (98-107); GLUCOSE 124 mg/dL (74-106); POTASSIUM - SERUM 4.3 mmol/L (3.5-5.1); PROTEIN - SERUM 6.8 g/dL (6.4-8.2); SODIUM 142 mmol/L (136-145); UREA NITROGEN 17 mg/dL (7-18); eGFR NON AFRICAN AMERICAN 81 mL/min (90-120)
[2017-08-27 05:48] LABS: CHOL - HDL RATIO 5.2 ratio (2.3-4.9); CHOLESTEROL, TOTAL 193 mg/dL (0-200); CKMB 0.6 U/L (0.0-3.6); CREATINE KINASE 59 UL (21-232); HDL CHOLESTEROL 37 mg/dL (32-96); LDL CHOLESTEROL 140 mg/dL (0-100); LDL-HDL RATIO 3.8 ratio (1.5-3.5); TRIGLYCERIDE 80 mg/dL (30-200); TROPONIN-I < 0.017 ng/mL (0.000-0.060)
== END 2017-08-27 08:28 | disposition home or self-care (01) ==
LOC: D.ER 04:37 → D.EDHOLD 05:39 → OBSVTIME 05:39 → D.EDHOLD 05:39
PROVIDERS: Family Medicine
DX: I25.119 Atherosclerotic heart disease of native coronary artery with unspecified angina pectoris (principal); G89.29 Other chronic pain; R51 Headache; M54.2 Cervicalgia; I10 Essential (primary) hypertension; Z95.5 Presence of coronary angioplasty implant and graft

== ENCOUNTER 2017-11-18 21:19 | Emergency (ER) | payer MEDICAID ==
[~2017-11-18] VITALS: Ht 175.3 cm; Wt 65.9 kg
[2017-11-18 21:26] VITALS: Ht 175.3 cm; Wt 65.9 kg
[2017-11-18] MEDS ORDERED: VANCOMYCIN 1 GM/1 G1 IV (21:30)
[2017-11-18] MEDS ORDERED: ROCEPHIN 2 GM/D52 G1 IV (21:31)
[2017-11-18] MEDS ORDERED: TOPROL XL25 MG (21:32)
[2017-11-18] MEDS ORDERED: COLACE100 MG (21:32)
[2017-11-18] MEDS ORDERED: DIFLUCAN200 MG PO (21:32)
[2017-11-18] MEDS ORDERED: ZOFRAN4 MG (21:32)
[2017-11-18] MEDS ORDERED: LIPITOR80 MG (21:32)
[2017-11-18] MEDS ORDERED: PEPCID20 MG (21:32)
[2017-11-18] MEDS ORDERED: ULTRAM50 MG (21:33)
[2017-11-19 01:08] LABS: BASOPHILS 1.3 % (0-2); EOSINOPHILS 3.5 % (0-7); HEMATOCRIT 35.8 % (42.0-54.0); HEMOGLOBIN 11.9 g/dL (13.5-17.5); IMMATURE GRANULOCYTES 0.3 % (0-5); LYMPHOCYTES 27.4 % (15-50); MCH 29.1 pg (26.0-34.0); MCHC 33.2 g/dL (31.0-37.0); MCV 87.5 fL (80.0-100.0); MONOCYTES 7.1 % (2-11); NEUTROPHILS 60.4 % (40-80); RBC 4.09 10x6/uL (4.20-6.10); RDW 14.9 % (11.5-14.5)
[2017-11-19 01:09] LABS: PLATELET COUNT 169 10x3/uL (130-400)
[2017-11-19 01:24] LABS: ALBUMIN 3.3 g/dL (3.4-5.0); ALKALINE PHOSPHATASE 71 U/L (46-116); ALT (SGPT) 122 U/L (10-68); BILIRUBIN - TOTAL 0.17 mg/dL (0.2-1.3); CALC OSMOLALITY 285 mosm/kg (275-300); CALCIUM 8.6 mg/dL (8.5-10.1); CARBON DIOXIDE 35.1 mmol/L (21.0-32.0); CHLORIDE - SERUM 102 mmol/L (98-107); GLUCOSE 161 mg/dL (74-106); POTASSIUM - SERUM 3.9 mmol/L (3.5-5.1); PROTEIN - SERUM 6.6 g/dL (6.4-8.2); SODIUM 141 mmol/L (136-145); UREA NITROGEN 17 mg/dL (7-18); eGFR NON AFRICAN AMERICAN 81 mL/min (90-120)
[2017-11-19 03:56] VITALS: BP 134/95
== END 2017-11-19 03:56 | disposition home or self-care (01) ==
LOC: D.ER 21:19
PROVIDERS: Emergency Medicine
DX: Z98.890 Other specified postprocedural states (principal)

== ENCOUNTER → 2017-11-24 11:42 | Outpatient (CLI) | payer MEDICAID ==
[2017-11-18 21:26] VITALS: BMI 21.4
[~2017-11-24 11:42] MED LIST changes: +COLACE100 MG; +DIFLUCAN200 MG PO; +LIPITOR80 MG; +PEPCID20 MG; +ROCEPHIN 2 GM/D52 G1 IV; +TOPROL XL25 MG; +ULTRAM50 MG; +VANCOMYCIN 1 GM/1 G1 IV; +ZOFRAN4 MG
[2017-11-24 12:27] LABS: BASOPHILS 1.3 % (0-2); EOSINOPHILS 3.5 % (0-7); HEMATOCRIT 37.1 % (42.0-54.0); HEMOGLOBIN 12.5 g/dL (13.5-17.5); IMMATURE GRANULOCYTES 0.4 % (0-5); MCH 29.3 pg (26.0-34.0); MCHC 33.7 g/dL (31.0-37.0); MCV 86.9 fL (80.0-100.0); MEAN PLATELET VOLUME 10.6 fL (7.4-10.4); MONOCYTES 7.5 % (2-11); NEUTROPHILS 61.3 % (40-80); RBC 4.27 10x6/uL (4.20-6.10); WBC 6.8 10x3/uL (4.8-10.8)
[2017-11-24 12:38] LABS: PLATELET COUNT 232 10x3/uL (130-400)
[2017-11-24 12:43] LABS: ALBUMIN 3.3 g/dL (3.4-5.0); BILIRUBIN - INDIRECT 0.13 mg/dL (0.00-1.00); BILIRUBIN - TOTAL 0.17 mg/dL (0.2-1.3); PROTEIN - SERUM 6.9 g/dL (6.4-8.2)
[2017-11-24 12:46] LABS: BILIRUBIN - DIRECT 0.04 mg/dL (0.00-0.30)
== END | disposition home or self-care (01) ==
LOC: D.LABREF 11:42
PROVIDERS: Family Medicine
DX: T84.7XXD Infection and inflammatory reaction due to other internal orthopedic prosthetic devices, implants and grafts, subsequent encounter (principal)

== ENCOUNTER → 2017-12-01 13:40 | Outpatient (CLI) | payer MEDICAID ==
[2017-11-18 21:26] VITALS: BMI 21.4
[2017-12-01 14:11] LABS: BASOPHILS 1.6 % (0-2); EOSINOPHILS 3.6 % (0-7); HEMATOCRIT 39.5 % (42.0-54.0); HEMOGLOBIN 13.2 g/dL (13.5-17.5); IMMATURE GRANULOCYTES 0.3 % (0-5); LYMPHOCYTES 28.7 % (15-50); MCH 29.3 pg (26.0-34.0); MCHC 33.4 g/dL (31.0-37.0); MCV 87.8 fL (80.0-100.0); MEAN PLATELET VOLUME 10.8 fL (7.4-10.4); MONOCYTES 8.2 % (2-11); NEUTROPHILS 57.6 % (40-80); RDW 14.6 % (11.5-14.5); WBC 6.5 10x3/uL (4.8-10.8)
[2017-12-01 14:21] LABS: PLATELET COUNT 295 10x3/uL (130-400)
[2017-12-01 14:25] LABS: ALBUMIN 3.4 g/dL (3.4-5.0); BILIRUBIN - INDIRECT 0.11 mg/dL (0.00-1.00); BILIRUBIN - TOTAL 0.14 mg/dL (0.2-1.3); PROTEIN - SERUM 7.1 g/dL (6.4-8.2)
[2017-12-01 14:27] LABS: BILIRUBIN - DIRECT 0.03 mg/dL (0.00-0.30)
== END | disposition home or self-care (01) ==
LOC: D.LABREF 13:40
PROVIDERS: Family Medicine
DX: T84.7XXA Infection and inflammatory reaction due to other internal orthopedic prosthetic devices, implants and grafts, initial encounter (principal)

== ENCOUNTER → 2017-12-08 12:22 | Outpatient (CLI) | payer MEDICAID ==
[2017-11-18 21:26] VITALS: BMI 21.4
[2017-12-08 14:16] LABS: BASOPHILS 1.1 % (0-2); EOSINOPHILS 4.3 % (0-7); HEMATOCRIT 41.2 % (42.0-54.0); HEMOGLOBIN 13.7 g/dL (13.5-17.5); IMMATURE GRANULOCYTES 0.3 % (0-5); LYMPHOCYTES 23.9 % (15-50); MCH 29.2 pg (26.0-34.0); MCHC 33.3 g/dL (31.0-37.0); MCV 87.8 fL (80.0-100.0); MEAN PLATELET VOLUME 11.4 fL (7.4-10.4); MONOCYTES 6.3 % (2-11); NEUTROPHILS 64.1 % (40-80); PLATELET COUNT 242 10x3/uL (130-400); RBC 4.69 10x6/uL (4.20-6.10); RDW 14.6 % (11.5-14.5); WBC 6.2 10x3/uL (4.8-10.8)
[2017-12-08 14:29] LABS: ALBUMIN 3.4 g/dL (3.4-5.0); BILIRUBIN - INDIRECT 0.09 mg/dL (0.00-1.00); BILIRUBIN - TOTAL 0.14 mg/dL (0.2-1.3); PROTEIN - SERUM 6.7 g/dL (6.4-8.2); VANCOMYCIN - TROUGH 15.8 ug/mL (10.0-20.0)
[2017-12-08 14:30] LABS: BILIRUBIN - DIRECT 0.05 mg/dL (0.00-0.30)
== END | disposition home or self-care (01) ==
LOC: D.LABREF 12:22
PROVIDERS: Internal Medicine
DX: T84.7XXD Infection and inflammatory reaction due to other internal orthopedic prosthetic devices, implants and grafts, subsequent encounter (principal)

== ENCOUNTER → 2017-12-15 10:47 | Outpatient (CLI) | payer MEDICAID ==
[2017-11-18 21:26] VITALS: BMI 21.4
[2017-12-15 11:22] LABS: ALBUMIN 3.6 g/dL (3.4-5.0); BILIRUBIN - DIRECT 0.04 mg/dL (0.00-0.30); BILIRUBIN - INDIRECT 0.11 mg/dL (0.00-1.00); BILIRUBIN - TOTAL 0.15 mg/dL (0.2-1.3); CREATININE - SERUM 1.1 mg/dL (0.6-1.3); PROTEIN - SERUM 7.3 g/dL (6.4-8.2); VANCOMYCIN - TROUGH 18.1 ug/mL (10.0-20.0)
[2017-12-15 11:32] LABS: BASOPHILS 1.1 % (0-2); EOSINOPHILS 4.3 % (0-7); HEMATOCRIT 41.9 % (42.0-54.0); HEMOGLOBIN 14.2 g/dL (13.5-17.5); IMMATURE GRANULOCYTES 0.3 % (0-5); LYMPHOCYTES 26.4 % (15-50); MCH 29.2 pg (26.0-34.0); MCHC 33.9 g/dL (31.0-37.0); MCV 86.2 fL (80.0-100.0); MEAN PLATELET VOLUME 11.1 fL (7.4-10.4); MONOCYTES 8.1 % (2-11); NEUTROPHILS 59.8 % (40-80); PLATELET COUNT 209 10x3/uL (130-400); RBC 4.86 10x6/uL (4.20-6.10); RDW 14.6 % (11.5-14.5); WBC 6.4 10x3/uL (4.8-10.8)
== END | disposition home or self-care (01) ==
LOC: D.LABREF 10:47
PROVIDERS: Internal Medicine
DX: T84.7XXD Infection and inflammatory reaction due to other internal orthopedic prosthetic devices, implants and grafts, subsequent encounter (principal)

== ENCOUNTER → 2017-12-22 10:33 | Outpatient (CLI) | payer MEDICAID ==
[2017-11-18 21:26] VITALS: BMI 21.4
[2017-12-22 12:17] LABS: BASOPHILS 0.7 % (0-2); EOSINOPHILS 3.1 % (0-7); HEMATOCRIT 40.5 % (42.0-54.0); HEMOGLOBIN 13.5 g/dL (13.5-17.5); IMMATURE GRANULOCYTES 0.3 % (0-5); LYMPHOCYTES 27.2 % (15-50); MCH 29.1 pg (26.0-34.0); MCHC 33.3 g/dL (31.0-37.0); MCV 87.3 fL (80.0-100.0); MEAN PLATELET VOLUME 11.6 fL (7.4-10.4); MONOCYTES 7.4 % (2-11); NEUTROPHILS 61.3 % (40-80); PLATELET COUNT 194 10x3/uL (130-400); RBC 4.64 10x6/uL (4.20-6.10); RDW 14.5 % (11.5-14.5); WBC 6.7 10x3/uL (4.8-10.8)
[2017-12-22 12:34] LABS: ALBUMIN 3.4 g/dL (3.4-5.0); BILIRUBIN - INDIRECT 0.14 mg/dL (0.00-1.00); BILIRUBIN - TOTAL 0.18 mg/dL (0.2-1.3); CREATININE - SERUM 0.9 mg/dL (0.6-1.3); PROTEIN - SERUM 6.8 g/dL (6.4-8.2); VANCOMYCIN - TROUGH 15.7 ug/mL (10.0-20.0)
[2017-12-22 12:35] LABS: BILIRUBIN - DIRECT 0.04 mg/dL (0.00-0.30)
== END | disposition home or self-care (01) ==
LOC: D.LABREF 10:33
DX: T84.7XXD Infection and inflammatory reaction due to other internal orthopedic prosthetic devices, implants and grafts, subsequent encounter (principal)

== ENCOUNTER 2018-02-16 09:57 | Day surgery (SDC) | payer MEDICAID ==
[~2018-02-16] VITALS: Ht 175.3 cm; Wt 70.3 kg
[2018-02-16 10:30] LABS: BASOPHILS 0.6 % (0-2); EOSINOPHILS 1.8 % (0-7); HEMATOCRIT 45.5 % (42.0-54.0); HEMOGLOBIN 15.3 g/dL (13.5-17.5); IMMATURE GRANULOCYTES 0.3 % (0-5); LYMPHOCYTES 28.2 % (15-50); MCH 29.1 pg (26.0-34.0); MCHC 33.6 g/dL (31.0-37.0); MCV 86.7 fL (80.0-100.0); MEAN PLATELET VOLUME 10.8 fL (7.4-10.4); MONOCYTES 6.5 % (2-11); NEUTROPHILS 62.6 % (40-80); RBC 5.25 10x6/uL (4.20-6.10); RDW 14.3 % (11.5-14.5); WBC 7.1 10x3/uL (4.8-10.8)
[2018-02-16 10:31] LABS: PLATELET COUNT 237 10x3/uL (130-400)
[2018-02-16 10:35] LABS: ANION GAP 9.5 mmol/L (8-16); CARBON DIOXIDE 30.5 mmol/L (21.0-32.0); CREATININE - SERUM 1.2 mg/dL (0.6-1.3)
[2018-02-16] MEDS ORDERED: NORCO 10-325 TA1 TAB PO (11:12)
[2018-02-16 11:25] VITALS: BP 128/100; Ht 175.3 cm; Wt 70.3 kg
== END 2018-02-16 15:47 | disposition home or self-care (01) ==
LOC: D.OPS 09:57
PROVIDERS: Anesthesiology
DX: C85.90 Non-Hodgkin lymphoma, unspecified, unspecified site (principal); Z01.812 Encounter for preprocedural laboratory examination

== ENCOUNTER 2018-07-18 10:38 | Emergency (ER) | payer MEDICAID ==
[~2018-07-18 10:38] MED LIST changes: +NORCO 10-325 TA1 TAB PO
[2018-07-18 11:12] LABS: BASOPHILS 2.4 % (0-2); EOSINOPHILS 2.2 % (0-7); HEMATOCRIT 39.8 % (42.0-54.0); HEMOGLOBIN 13.5 g/dL (13.5-17.5); IMMATURE GRANULOCYTES 1.1 % (0-5); LYMPHOCYTES 29.1 % (15-50); MCH 29.7 pg (26.0-34.0); MCHC 33.9 g/dL (31.0-37.0); MCV 87.7 fL (80.0-100.0); MEAN PLATELET VOLUME 10.8 fL (7.4-10.4); NEUTROPHILS 62.2 % (40-80); PLATELET COUNT 155 10x3/uL (130-400); RBC 4.54 10x6/uL (4.20-6.10); RDW 14.7 % (11.5-14.5); WBC 4.6 10x3/uL (4.8-10.8)
[2018-07-18 11:24] LABS: APTT 27.4 SECONDS (22.8-39.4); INR 0.99 (0.85-1.17); PROTIME 12.5 SECONDS (11.6-15.0)
[2018-07-18 11:25] LABS: ALBUMIN 3.8 g/dL (3.4-5.0); ALKALINE PHOSPHATASE 64 U/L (46-116); ALT (SGPT) 26 U/L (10-68); BILIRUBIN - TOTAL 0.38 mg/dL (0.2-1.3); CALC OSMOLALITY 284 mosm/kg (275-300); CALCIUM 8.6 mg/dL (8.5-10.1); CARBON DIOXIDE 29.6 mmol/L (21.0-32.0); CHLORIDE - SERUM 105 mmol/L (98-107); CREATININE - SERUM 0.9 mg/dL (0.6-1.3); GLUCOSE 97 mg/dL (74-106); POTASSIUM - SERUM 3.9 mmol/L (3.5-5.1); PROTEIN - SERUM 7.1 g/dL (6.4-8.2); SODIUM 142 mmol/L (136-145); UREA NITROGEN 18 mg/dL (7-18); eGFR NON AFRICAN AMERICAN > 90 mL/min (90-120)
[2018-07-18 11:36] LABS: CKMB 1.7 U/L (0.0-3.6); CREATINE KINASE 250 UL (21-232); PRO BNP 94 pg/mL (0-125); TROPONIN-I 0.027 ng/mL (0.000-0.060)
[2018-07-18] MEDS ORDERED: LEVOFLOXACIN500 MG PO (12:02)
[2018-07-18] MEDS ORDERED: AMOXICILLIN500 M1 PO (12:02)
== END 2018-07-18 12:50 | disposition home or self-care (01) ==
LOC: D.ER 10:38
PROVIDERS: Emergency Medicine
DX: J20.9 Acute bronchitis, unspecified (principal); C85.90 Non-Hodgkin lymphoma, unspecified, unspecified site

== ENCOUNTER 2019-01-31 20:41 | Outpatient (CLI) | payer MEDICAID ==
[~2019-01-31] VITALS: Ht 175.3 cm; Wt 67.6 kg
--- NOTE | ~2019-01-31 | HEMODYNAMI ---
PATIENT:JUNO CARRION MEDICAL RECORD: [id number] : 56 [facility]# [id number] ADMISSION DATE: 01/31/19 Generatedon:02/01/201916:44 Patient name: JUNO CARRION Patient #: [id number] SSN: [id number] : 1960 Date of study: 02/01/2019 Page: Of Hemodynamic Procedure Report Patient Data Patient Demographics Procedure consent was obtained First Name: JUNO Gender: Male Last Name: MURALI : 1960 [facility] Initial: S Age: 58 year(s) Patient #: [id number] Race: SSN: [id number] Additional ID: [id number] Contact details Address: [address] [place] [address] State: [place] City: [facility] Zip code: [address] Past Medical History Allergies Allergen Reaction Date Comments Reported Demerol 07/06/2014 Other allergy 01/23/2015 Polyester Other allergy 12/11/2016 demerol Admission Admission Data Admission Date: 01/31/2019 Admission Time: 22:11 Arrival Date: 01/31/2019 Arrival Time: 22:11 Admit Source: Emergency Insurance Payor: Private department health insurance Room #: D.2121 [facility] #: [id number] Height (in.): 68.9 BSA: 1.83 (m2) Height (cm.): 175 BMI: 22.2 (kg/m2) Weight (lbs.): 149.92 Weight (kg.): 68 Lab Results Lab Result Date: 02/01/2019 Lab Result Time: 0:00 Biochemistry Name Units Result Min Max BUN mg/dl 19 --(----)*- 7 18 Creatinine mg/dl 1.1 --(--*-)-- 0.6 1.3 eGFR ml/min 72 *-(----)-- 90 120 NONAFRICAN Troponin l ng/ml 0.017 --(-*--)-- 0 0.06 CBC Name Units Result Min Max Hemoglobin g/dl 15.1 --(-*--)-- 13.5 17.5 Procedure Procedure Types Cath Procedure Diagnostic Procedure [facility] w/Coronaries FFR/IVUS FFR Initial FFR Additional Sedation Charges Moderate Sedation up to 30 minutes PCI Procedure Coronary Stent Coronary Stent Initial PTCA PTCA Initial Procedure Description Procedure Date Procedure Date: 02/01/2019 Procedure Start Time: 16:10 Procedure End Time: 16:39 Procedure Staff Name Function Konrad Logan MD Performing Physician Lynne Estrada RT Monitor Jaqueline Maher RT Scrub Dinora Cortez RN Nurse Indication Angina Procedure Data Cath Procedure Fluoroscopy Diagnostic fluoroscopy Total fluoroscopy Time: 7.3 time: 7.3 min min Diagnostic fluoroscopy Total fluoroscopy dose: 715 dose: 715 mGy mGy Contrast Material Contrast Material Type Amount (ml) Isovue 300 90 Entry Location Entry Primary Successful Side Size Upsize Upsize Entry Closure Hernandez ccessful Closure Location (Fr) 1 (Fr) 2 (Fr) Remarks Device Remarks Radial Right 6 Fr Mechanical artery Short Compression Estimated blood loss: 5 ml Procedure Complications No complications Procedure Medications Medication Administration Route Dosage 0.9% NaCl I.V. 100 ml/hr Oxygen etCO2 Nasal cannula 2 l/min Lidocaine 2% added to field 20 Heparin Flush Bag added to field 2 bags (1000units/500ml NS) Radial Cocktail added to field 1 syringe (Verapamil 2mg/Nitro 400mcg/Heparin 1500units) Versed I.V. 2 mg Fentanyl I.V. 100 mcg Versed I.V. 2 mg Fentanyl I.V. 100 mcg Heparin Bolus I.V. 4000 units Hemodynamics Rest BSA: 1.83 (m2) HGB: 15.1 (g/dl) O2 Consumption: Estimated: 218.64 (ml/min) O2 Co nsumption indexed: Estimated:119.48 (ml/min/m) Heart Rate: 75 (bpm) Pressure Samples Time Site Value (mmHg) Purpose Heart Use Rate(bpm) 16:12 LV 105/1,13 Snapshot 74 Snapshots Pre Cath Intra NCS Post Cath Vital Signs Time Heart Resp SPO2 etCO2 NIBP (mmHg) Rhythm Pain Sedation Rate (ipm) (%) (mmHg) Status Level (bpm) 15:37:57 71 18 98 18.7 142/102(110) NSR 0 (11) 10(A) , No pain 15:42:11 74 19 98 22.2 114/82(101) NSR 0 (11) 10(A) , No pain 15:46:17 73 16 98 16.7 106/74(92) NSR 0 (11) 10(A) , No pain 15:50:23 69 10 97 24 113/62(82) NSR 0 (11) 10(A) , No pain 15:54:29 72 16 98 22.5 103/74(90) NSR 0 (11) 10(A) , No pain 15:58:34 71 16 99 27 104/61(82) NSR 0 (11) 10(A) , No pain 16:02:38 71 10 99 27.7 86/66(79) NSR 0 (11) 10(A) , No pain 16:07:21 71 10 100 30 107/66(85) NSR 0 (11) 10(A) , No pain 16:11:22 73 10 100 31.5 102/76(89) NSR 0 (11) 10(A) , No pain 16:15:14 84 15 98 45 91/32(52) NSR 0 (11) 10(A) , No pain 16:19:12 73 17 98 39 108/73(94) NSR 0 (11) 10(A) , No pain 16:23:19 77 12 97 24.7 112/66(86) NSR 0 (11) 10(A) , No pain 16:27:27 75 15 99 30 101/67(86) NSR 0 (11) 10(A) , No pain 16:31:33 75 17 99 42.7 115/65(81) NSR 0 (11) 10(A) , No pain 16:35:41 73 9 100 41.2 106/70(90) NSR 0 (11) 10(A) , No pain 16:39:47 66 10 100 43.5 107/63(82) NSR 0 (11) 10(A) , No pain Medications Time Medication Route Dose Verified Delivered Reason Not es Effectiveness by by 15:36:29 0.9% NaCl I.V. 100 Konrad Farias used for ml/hr Desmond Cortez music department chair 15:36:35 Oxygen etCO2 2 l/min Konrad Dinora used for Nasal Desmond Cortez procedure cannula RN 15:36:40 Lidocaine 2% added 20ml Konrad Konrad for local to vial Desmond Logan MD anesthetic field 15:36:44 Heparin Flush added 2 bags Konradnedra Banuelosrey used for Bag to Desmond Logan MD procedure (1000units/500ml field NS) 15:36:48 Radial Cocktail added 1 Konrad Konrad used for (Verapamil to syringe Desmond Logan MD procedure 2mg/Nitro field 400mcg/Heparin 1500units) 16:07:25 Versed I.V. 2 mg Konrad Dinora for sedation Desmond Cortez RN 16:07:30 Fentanyl I.V. 100 mcg Konrad Dinora for sedation Desmond Cortez RN 16:16:27 Versed I.V. 2 mg Konrad Dinora for sedation Desmond Cortez RN 16:16:31 Fentanyl I.V. 100 mcg Konrad Dinora for sedation Desmond Cortez RN 16:22:14 Heparin Bolus I.V. 4000 Konrad Dinora for domingo ified units Desmond Cortez anticoagulation with Dr. KAYLEE Logan Procedure Log Time Note 15:20:18 Diagnostic Cath Status : Urgent 15:20:42 Jaqueline Maher RT(R) sent for patient. Start room use. 15:20:43 Time tracking: Regular hours (M-F 7:00 - 5:00) 15:20:47 Plan of Care:Hemodynamics will remain stable., Cardiac rhythm will remain stable., Comfort level will be maintained., Respiratory function will remain adequate., Patient/ family verbilizes understanding of procedure., Procedure tolerated without complication., Recovers from procedure without complications.. 15:20:54 Procedure Status Urgent Heart Cath (IP). 15:21:01 ACC Patient presents with Unstable Angina CCS Anginal Class 4--Inability to carry out any physical activity w/o angina. Angina may occur at rest. 15:21:19 Informed consent obtained and on chart 15:28:30 Patient received from Med II to CCL 2 Alert and oriented. Tansferred to table in Supine position. 15:28:31 Warm blankets applied, and angel hugger turned on for patient comfort. 15:28:31 Correct patient and procedure confirmed by team. 15:28:33 ECG and BP/O2 sat monitors applied to patient. 15:32:13 Admit Source: Emergency department 15:32:18 Arrival Date: 01/31/2019 10:11:00 PM 15:36:29 0.9% NaCl 100 ml/hr I.V. was administered by Dinora Cortez RN; used for procedure; Verbal order read back and verified. 15:36:35 Oxygen 2 l/min etCO2 Nasal cannula was administered by Dinora Cortez RN; used for procedure; Verbal order read back and verified. 15:36:40 Lidocaine 2% 20ml vial added to field was administered by Konrad Logan MD; for local anesthetic; Verbal order read back and verified. 15:36:44 Heparin Flush Bag (1000units/500ml NS) 2 bags added to field was administered by Konrad Logan MD; used for procedure; Verbal order read back and verified. 15:36:48 Radial Cocktail (Verapamil 2mg/Nitro 400mcg/Heparin 1500units) 1 syringe added to field was administered by Konrad Logan MD; used for procedure; Verbal order read back and verified. 15:36:51 Vital chart was started 15:41:33 Baseline sample Acquired. 15:41:37 Rhythm: sinus rhythm 15:41:38 Full Disclosure recording started 15:41:59 H&P Date Dictated: 02/01/2019 New H&P dictated by physician.. 15:42:07 Pre-procedure instructions explained to patient. 15:42:07 Pre-op teaching completed and patient verbalized understanding. 15:43:10 Family in patients room. 15:43:15 Patient NPO since Midnight. 15:43:27 Is the patient allergic to Iodine/contrast media? No. 15:43:28 Was the patient premedicated? Yes 15:43:30 Is patient on blood thinner?Yes 15:43:34 ACC The patient was administered the following blood thiners within the last 24 hours: ACCEffient 15:43:37 Patient diabetic? No. 15:43:39 Previous problem with sedation/anesthesia? No ? 15:43:41 Snore? Yes 15:43:42 Sleep apnea? Yes 15:43:43 Deviated septum? No 15:43:43 Opens mouth fully? Yes 15:43:44 Sticks out tongue? Yes 15:43:49 Airway obstruction? Yes copd 15:43:56 Dentures? Yes in tight 15:44:00 Pre procedure: right dorsailis pedis pulse 2+ Normal; easily identifiable; not easily obliterated 15:44:01 Pre procedure: left dorsailis pedis pulse 2+ Normal; easily identifiable; not easily obliterated 15:44:03 Patient pain scale 0/10 ?. 15:44:09 IV patent on arrival in right forearm with 0.9% NaCl at [facility]. 15:44:12 Lab results completed and on chart. 15:44:18 Stress Test: no; N/A ? 15:44:23 Risk of Mortality: 1.1 15:44:27 Risk of blood transfusion: 0.7 15:44:30 Risk of MALI: 5.0 15:44:35 Right Radial & Right Groin area was prepped with chlora-prep and draped in sterile fashion 15:44:36 Alarms reviewed by R. N. 15:44:37 Sharps counted by scrub and verified by R.N. 15:46:01 Insurance Payor : Private health insurance 15:46:27 Patient Height : 68.9 inches 15:46:32 Patient Weight : 149.92 lbs 15:48:54 Lab Result : Troponin l 0.017 ng/ml 15:48:54 Lab Result : eGFR NONAFRICAN 72 ml/min 15:48:54 Lab Result : BUN 19 mg/dl 15:48:54 Lab Result : Creatinine 1.1 mg/dl 15:48:54 Lab Result : Hemoglobin 15.1 g/dl 15:49:09 Indication : Angina 15:49:19 2) 60-89 Mildly reduced kidney function, and other findings (as for stage 1) point to kidney disease. 15:49:38 Maximum allowable contrast dose (3.7 X eGFR X 0.75)200 ml. 15:49:43 Physician paged 15:58:50 Sedation plan: IV Moderate Sedation Medication:Versed, Fentanyl 16:05:59 --------ALL STOP TIME OUT------ 16:06:00 Final Timeout: patient, procedure, and site verified with staff and physician. All members of the team are in agreement. 16:06:02 Right Radial & Right Groin site verified by team. 16:06:05 Fire Safety Assessment: A--An alcohol-based skin anteseptic being used preoperatively., C--Open oxygen or nitrous oxide is being used., D--An ESU, laser, or fiber-optic light is being used. 16:06:09 Physical assessment completed. ASA score P 2 - A patient with mild systemic disease as per Konrad Logan MD. 16:06:13 Zero performed for pressure channel P1 16:06:25 Use device set Radial Dx or PCI 16:06:29 ACIST Syringe (39236) opened to sterile field. 16:06:29 Medline Cath Pack ([id number]) opened to sterile field. 16:06:30 Bag Decanter (2002S) opened to sterile field. 16:06:31 ACIST Hand Control (07155) opened to sterile field. 16:06:31 ACIST Manifold (38349) opened to sterile field. 16:06:32 Tegaderm 4 x 4 (1626W) opened to sterile field. 16:06:33 MBrace Wrist Support ([id number]) opened to sterile field. 16:06:38 SHEATH 6FR RAIN (7422822) opened to sterile field. 16:06:40 EMERALD Guide Wire (291-874) opened to sterile field. 16:07:25 Versed 2 mg I.V. was administered by Dinora Cortez RN; for sedation; Verbal order read back and verified. 16:07:30 Fentanyl 100 mcg I.V. was administered by Dinora Cortez RN; for sedation; Verbal order read back and verified. 16:10:27 Procedure started. 16:10:34 Local anesthetic to right radial artery with Lidocaine 2% by Konrad Logan MD.INITIAL ACCESS ONLY 16:12:03 A 6 Fr Short sheath was inserted into the Right Radial artery 16:12:33 Zero performed for pressure channel P1 16:12:59 LV hemodynamics recorded. 16:13:00 LV gram done using ALATORRE 16:13:03 Injector settings: Ml/sec: 5, Volume: 15, 16:13:10 EF : 60 % 16:13:57 LCA angiography performed. 16:14:00 Injector settings: Ml/sec: 3, Volume: 6, 16:14:06 RCA angiography performed. 16:14:09 Injector settings: Ml/sec: 3, Volume: 6, 16:14:22 Catheter removed. 16:14:24 Proceeding to intervention. 16:14:42 INFLATOR Merit BasixCompak (KM2846) opened to sterile field. 16:14:46 Woodgate Verrata Plus pressure wire (53995R) opened to sterile field. 16:16:27 Versed 2 mg I.V. was administered by Dinora Cortez RN; for sedation; Verbal order read back and verified. 16:16:31 Fentanyl 100 mcg I.V. was administered by Dinora Cortez RN; for sedation; Verbal order read back and verified. 16:16:43 GUIDE 6FR XBLAD 3.5 catheter ([id number]) opened to sterile field. 16:16:44 6 Fr XBLAD 3.5 guide catheter was inserted over the wire 16:17:31 FFR/IFR wire advanced. 16:17:33 Baseline FFR 1. 16:17:34 Wire advanced across lesion. 16:22:14 Heparin Bolus 4000 units I.V. was administered by Dinora Cortez RN; for anticoagulation; verified with Dr. Logan Verbal order read back and verified. 16:25:21 Diag1 lesion measured at 0.82 with IFR 16:25:30 ACC Pre-intervention KRISTIN Flow is 3. 16:25:30 Pre PCI Site: [place] Diag1 has 70% stenosis. 16:25:30 Inflate balloon Inflation number: 1 A EUPHORA 2.5 x 15 Balloon ([id number]) was prepped and advanced across the 1st Diag 70, then inflated to 13 JOSEPHINE for 0:10 (min:sec) 0. 16:25:43 Balloon removed over the wire. 16:25:44 Diag1 lesion measured at 1.07 with IFR 16:26:08 ACC Post-intervention KRISTIN Flow is 3. 16:26:08 Post PCI Site: [place] Diag1 has 0% stenosis. 16:26:08 Wire removed. 16:26:51 Guide catheter removed. 16:26:57 GUIDE 6FR AR 1.0 catheter ([id number]) opened to sterile field. 16:27:11 6 Fr AR 1 guide catheter was inserted over the wire 16:28:05 ACC Pre-intervention KRISTIN Flow is 3. 16:28:21 FFR/IFR wire advanced. 16:28:24 Baseline FFR 1. 16:28:34 pRCA lesion measured at 0.87 with IFR 16:28:35 Pre PCI Site: [place] pRCA has 70% stenosis. 16:29:06 Place stent Inflation Number: 1 A AYANA RX 3.5 x 15 stent ([id number]) was prepped and advanced across the Prox RCA . The stent was deployed at 13 JOSEPHINE for 0:10 (min:sec) . 16:29:31 Inflation number: 1 The stent balloon was then re-inflated across the Mid RCA to 13 JOSEPHINE for 0:10 (min:sec) . 16:30:18 Stent catheter was removed intact over wire. 16:30:19 Post PCI Site: [place] pRCA has 0% stenosis. 16:31:00 pLAD lesion measured at 1.07 with IFR 16:31:26 Wire removed. 16:31:27 Guide catheter removed. 16:31:33 ZEPHYR REGULAR TR BAND (286016) opened to sterile field. 16:31:46 Sheath removed intact; hemostasis achieved with Mechanical Compression to the Right Radial artery. 16:31:49 Procedure ended.(Physican Out) 16:33:02 Fluoroscopy time 07.30 minutes. 16:33:06 Flurop Dose total: 715 16:33:06 Fluoroscopy dose: 715 mGy 16:33:11 ACT drawn and resulted at >400 seconds. (normal therapeutic range 180-240 seconds). 16:33:11 Dose Area Product 91369 mGy/cm. 16:33:14 Contrast amount:Isovue 300 90ml. 16:33:17 Maximum allowable dose exceeded? No. 16:33:19 Sharps counted by scrub and verified by R.N. 16:38:30 Newberg band inflated with 8cc of air. 16:38:31 Insertion/operative site no bleeding no hematoma. 16:38:37 Post right radial artery:stable 16:38:39 Post Procedure Pulses reassessed and unchanged 16:38:42 Post procedure rhythm: unchanged. 16:38:44 Estimated blood loss: 5 ml 16:38:46 Post procedure instruction explained to patient.Patient verbalizes understanding. 16:38:47 Patient needs reinforcement of post procedure teaching. 16:39:15 Procedure type changed to Cath procedure, Diagnostic procedure, LHC, [facility] w/Coronaries, FFR/IVUS, FFR Initial, FFR Additional, Sedation Charges, Moderate Sedation up to 30 minutes, PCI procedure, Coronary Stent, Coronary Stent Initial, PTCA, PTCA Initial 16:39:16 Procedure and supply charges have been captured, reviewed, submitted and are correct. 16:39:23 Procedure Complication : No complications 16:39:25 Vital chart was stopped 16:39:29 [facility] Findings: MVD- PCI performed (see procedure note) 16:39:31 Operative report dictated upon procedure completion. 16:39:32 See physician's report for complete and final results. 16:39:40 Report given to [facility]. 16:39:43 Patient transfered to [facility] with Stretcher. 16:39:45 Procedure ended. 16:39:45 Full Disclosure recording stopped 16:39:57 ACC-PCI Only Patient was given prescriptions, or instructed by Konrad Logan MD to start/continue the following medications upon discharge: Effient 16:39:58 End room use (Document Last) Intervention Summary Intervention Notes Time ActionType Lesion and Equipment Used Action# Pressure Duration Attributes 16:25:30 Inflate 1st Diag EUPHORA 2.5 x 1 13 00:10 balloon 15 Balloon ([id number]) 16:29:06 Place stent Prox RCA AYANA RX 3.5 x 1 13 00:10 15 stent ([id number]) 16:29:31 Reinflate Mid RCA AYANA RX 3.5 x 1 13 00:10 stent 15 stent balloon ([id number]) Device Usage Item Name Manufacture Quantity Catalog Hospital Part Current Minimal Lot# / Number Charge Number Stock Stock Serial# Code ACIST Syringe Acist 1 62351 977804 114066 990837 20 (39272) Medical Systems Inc Medline Cath Medline 1 [id number] 497814 77479 112627 5 Pack ([id number]) Bag Decanter Microtek 1 620904 85639 135723 5 () Medical Inc. ACIST Hand Acist 1 40798 766924 536539 540258 5 Control Medical (76070) Systems Inc ACIST Manifold Acist 1 32713 525696 851626 091331 5 (49050) Medical Systems Inc Tegaderm 4 x 4 3M 1 1626W 402683 371774 605971 5 (1626W) MBrace Wrist Advanced 1 140-0250-00 826808 70393 836856 5 Support Vascular ([id number]) Dynamics SHEATH 6FR Cardinal 1 6432766 797392 7660030 027777 5 RAIN (6019528) Health EMERALD Guide Cardinal 1 502-455 580276 863016 002522 5 Wire (502455) Health INFLATOR Merit Merit 1 VD2432 426604 804763 365608 15 BasixMass VectorpaTalbot [employer] Medical (IN7211) Woodgate Woodgate 1 03229D 306320 181350498 781974 5 Verrata Plus pressure wire (72125T) EUPHORA 2.5 x Medtronic 1 [id number] 197695 240513 639498 5 [id number] 15 Balloon ([id number]) GUIDE 6FR Cardinal 1 [id number] 224600 021972 080492 10 XBLAD 3.5 Health catheter (64389190) GUIDE 6FR AR Medtronic 1 [id number] 963691 62625 127154 1 1.0 catheter (ZM5SE32) AYANA RX 3.5 x Medtronic 1 [id number] 910195 8773895 284338 5 [id number] 15 stent ([id number]) ZEPHYR REGULAR Cardinal 1 368683 233040 9390532 768713 5 TR [employer] (388896) Signature Audit Lamar Stage Time Signature Unsigned Intra-Procedure 02/01/2019 Lynne Estrada 4:42:46 PM RT(R) Intra-Procedure 02/01/2019 Dinora Cortez 4:43:15 PM RN Intra-Procedure 02/01/2019 Konrad Logan 4:43:47 PM Intra-Procedure 02/01/2019 Konrad Logan 4:44:23 PM Signatures Performing Physician : Signature : Konrad Logan MD Date : Time : Monitor : Lynne Estrada RT Signature : Date : Time : Nurse : Dinora Cortez RN Signature : Date : Time : [address] [place] [address]
[~2019-01-31 20:41] MED LIST changes: +AMOXICILLIN500 M1 PO; +LEVOFLOXACIN500 MG PO
[2019-01-31] MEDS ORDERED: NITROSTAT0.4 MG SL (20:50)
[2019-01-31] MEDS ORDERED: XANAX2 MG PO (20:50)
[2019-01-31] MEDS ORDERED: BAYER CHEWABLE81 MG PO (20:51)
[2019-01-31 21:07] LABS: BASOPHILS 0.7 % (0-2); EOSINOPHILS 3.3 % (0-7); HEMOGLOBIN 15.1 g/dL (13.5-17.5); IMMATURE GRANULOCYTES 0.2 % (0-5); LYMPHOCYTES 28.2 % (15-50); MCHC 33.6 g/dL (31.0-37.0); MCV 89.5 fL (80.0-100.0); MEAN PLATELET VOLUME 10.7 fL (7.4-10.4); MONOCYTES 8.6 % (2-11); RBC 5.03 10x6/uL (4.20-6.10); RDW 14.7 % (11.5-14.5)
[2019-01-31 21:10] LABS: PLATELET COUNT 202 10x3/uL (130-400)
[2019-01-31 21:16] LABS: APTT 27.1 SECONDS (22.8-39.4); INR 0.92 (0.85-1.17); PROTIME 11.9 SECONDS (11.6-15.0)
[2019-01-31] MEDS ORDERED: EFFIENT10 MG PO (21:18)
[2019-01-31 21:22] LABS: CALC OSMOLALITY 284 mosm/kg (275-300); CALCIUM 8.6 mg/dL (8.5-10.1); CARBON DIOXIDE 30.4 mmol/L (21.0-32.0); CHLORIDE - SERUM 103 mmol/L (98-107); CREATININE - SERUM 1.1 mg/dL (0.6-1.3); GLUCOSE 98 mg/dL (74-106); POTASSIUM - SERUM 3.9 mmol/L (3.5-5.1); SODIUM 142 mmol/L (136-145); UREA NITROGEN 19 mg/dL (7-18); eGFR NON AFRICAN AMERICAN 72 mL/min (90-120)
[2019-01-31 21:36] LABS: ALBUMIN 3.7 g/dL (3.4-5.0); ALKALINE PHOSPHATASE 72 U/L (46-116); ALT (SGPT) 24 U/L (10-68); BILIRUBIN - TOTAL 0.31 mg/dL (0.2-1.3); CKMB 2.4 U/L (0.0-3.6); CREATINE KINASE 147 UL (21-232); PROTEIN - SERUM 6.9 g/dL (6.4-8.2)
[2019-01-31 21:37] LABS: TROPONIN-I < 0.017 ng/mL (0.000-0.060)
[2019-01-31 22:01] VITALS: BP 120/77
[2019-01-31 22:49] VITALS: BP 98/67
[2019-01-31 23:36] VITALS: BP 108/71; BMI 22.1
--- NOTE | 2019-01-31 23:41 | NUR ---
RECIEVED REPORT FROM RN IN ER. ARRIVED TO FLOOR IN W/C. ALERT AND ORIENTED X4. UP AD SUSAN. IV TO RIGHT AC SL.. TELEMETRY IN PLACE. DENIES ANY PAIN AT THIS TIME. NPO PER ORDERS.
[2019-02-01 02:47] LABS: CKMB 2.6 U/L (0.0-3.6); CREATINE KINASE 130 UL (21-232); TROPONIN-I < 0.017 ng/mL (0.000-0.060)
[2019-02-01 04:00] VITALS: BP 101/69
--- NOTE | 2019-02-01 07:00 | NUR ---
RECIEVED REPORT. ALERT AND ORIENTED X4. RESTING IN BED. SINUS RYTHM ON TELEMETRY. DENIES ANY NEEDS AT THIS TIME. CONTINUE PLAN OF CARE AND SAFETY PRECAUTIONS.
[2019-02-01 08:27] VITALS: BP 108/73
[2019-02-01 09:50] LABS: ALT (SGPT) 22 U/L (10-68); CALC OSMOLALITY 283 mosm/kg (275-300); CALCIUM 8.7 mg/dL (8.5-10.1); CHLORIDE - SERUM 104 mmol/L (98-107); CHOL - HDL RATIO 5.7 ratio (2.3-4.9); CHOLESTEROL, TOTAL 217 mg/dL (0-200); GLUCOSE 93 mg/dL (74-106); HDL CHOLESTEROL 38 mg/dL (32-96); HEMOGLOBIN 15.4 g/dL (13.5-17.5); IMMATURE GRANULOCYTES 0.1 % (0-5); LDL CHOLESTEROL 157 mg/dL (0-100); LDL-HDL RATIO 4.1 ratio (1.5-3.5); MCH 29.6 pg (26.0-34.0); MCHC 32.8 g/dL (31.0-37.0); MCV 90.4 fL (80.0-100.0); MEAN PLATELET VOLUME 10.7 fL (7.4-10.4); MONOCYTES 10.5 % (2-11); NEUTROPHILS 56.4 % (40-80); PLATELET COUNT 192 10x3/uL (130-400); POTASSIUM - SERUM 4.3 mmol/L (3.5-5.1); RDW 14.5 % (11.5-14.5); SODIUM 141 mmol/L (136-145); TRIGLYCERIDE 111 mg/dL (30-200); UREA NITROGEN 20 mg/dL (7-18); eGFR NON AFRICAN AMERICAN 81 mL/min (90-120)
[2019-02-01 09:52] LABS: WBC 6.7 10x3/uL (4.8-10.8)
[2019-02-01 13:04] VITALS: BP 104/73
[2019-02-01 14:50] VITALS: Ht 175.3 cm; Wt 67.6 kg
--- NOTE | 2019-02-01 17:06 | NUR ---
ARRIVE BACK TO ROOM VIA BED FROM WOOD VENEER TAPER. ALERT AND ORIENTED X4. SITTING UP IN BED. ZYTHROBAND ON RT WRIST. CLEAN DRY INTACT. FREE FROM BLEEDING. FREE FROM HEMATOMA. REFUSES TO STAY SITTING. BP-114/87, HR-72 SINUS RYTHM, O2-94%. CONTINUE PLAN OF CARE AND SAFETY PRECAUTIONS.
[2019-02-01 17:19] VITALS: BP 116/73
[2019-02-01] MEDS ORDERED: PRAVACHOL20 MG PO (17:27)
--- NOTE | 2019-02-01 20:43 | NUR ---
IV D/C'D AND TR BAND D/C'S WITH NO BLEEDING. DSG PLACED ON SURGICAL SITE. REVIEWED DISCHARGE INSTRUCTIONS WITH PT AND FAMILY. DISCHARGED AND TAKEN TO FRONT ENTERANCE IN W/C. ALERT AND ORIENTED X4. ABLE TO AMBULATE WITH OUT DIFFICULTY TO PERSONAL VEHICLE. DENIED HAVING ANY QUESTIONS.
--- NOTE | 2019-02-02 11:41 | DS ---
PATIENT:JUNO MCDONALD :56 MEDICAL RECORD: [id number] DISCHARGE SUMMARY ADMISSION DATE: 01/31/19 DISCHARGE DATE: 02/01/19 DATE OF DISCHARGE: 02/01/2019 DATE OF DISCHARGE: 1. Unstable angina. 2. Coronary artery disease. 3. Percutaneous transluminal coronary angioplasty stent right coronary artery and percutaneous transluminal coronary angioplasty left anterior descending diagonal this admission. 4. Smoking. 5. Hypertension. 6. Hyperlipidemia. HOSPITAL COURSE: Mr. Mcdonald presents with unstable anginal symptomatology, found to have significant disease of the RCA and LAD diagonal, underwent transcatheter revascularization of both territories with no further anginal symptomatology. Discharged home with the addition of Pravachol and Effient to his medical regimen. He will follow up with [facility] in 1 month. TRANSINT:[id number] Voice Confirmation ID: [id number] DOCUMENT ID: [id number] TRESSA NUNEZ MD at 1141 CC: [id number] DICTATION DATE: 02/01/19 1639 COMMUNICATIONS DIRECTOR: 02/02/19 0157 DEP CLI 02/01/19 [facility] [address] [place] [address]
--- NOTE | 2019-02-02 11:41 | OP ---
PATIENT NAME: JUNO CARRION MEDICAL RECORD: [id number] :56 LOCATION:[facility] ADMISSION DATE: SURGEON: TRESSA NUNEZ MD DATE OF OPERATION: 02/01/2019 PROCEDURES: 1. PTCA and stent to the RCA. 2. PTCA to the LAD diagonal. 3. IFR to the LAD diagonal. 4. IFR to the RCA. 5. Left heart catheterization. 6. Selective coronary angiography. 7. Left ventriculogram. INDICATIONS: Unstable angina and coronary artery disease. PROCEDURE IN DETAIL: After informed consent was obtained and after a detailed description of the risks, benefits as well as alternative therapies, the patient elected to proceed with angiogram and angioplasty. The right radial area was prepped and draped in normal sterile fashion. Right radial artery was cannulated via modified Seldinger technique with placement of 6-Kiswahili sheath. All catheters exchanged through this sheath. FINDINGS: Left ventriculogram was performed in standard 30-degree ALATORRE view, reveals good cardiac wall motion, ejection fraction estimated 60%. SELECTIVE CORONARY ANGIOGRAPHY: 1. Left main is with no significant angiographic disease. 2. Left anterior descending has previously placed stents that are widely patent. There is a stent in the LAD diagonal. This appears to be at least 70% stenosis proximally. IFR is abnormal at 0.87. 3. Left circumflex has moderate irregularities but no flow-limiting stenosis. 4. The right coronary has previously placed stents, appears to be hazy 70% stenosis, proximal to the previously placed stents. IFR was abnormal at 0.82. PTCA OF THE LAD DIAGONAL: We used a 2.5 balloon and taken to 13 atmospheres. Result was 0% residual stenosis. IFR normalized to 1.09. PTCA AND STENT OF THE RCA: The stent used was a 3.5 x 15 mm Edmundo. Result was 0% residual stenosis. IFR normalized to 1.07. OVERALL IMPRESSION: Successful PTCA and stent of the RCA and PTCA of the LAD diagonal, both going from 70% initial stenosis with initial abnormal IFR to 0% residual stenosis with normalization of the IFR. TRANSINT:[id number] Voice Confirmation ID: [id number] DOCUMENT ID: [id number] OPERATIVE REPORT [id number] JUNO CARRION TRESSA NUNEZ MD at 1141 CC: [id number] DICTATION DATE: 02/01/19 1641 MEAT STOCKER: 02/01/194 DEP CLI 02/01/19 [facility] [address] [place] [address]
--- NOTE | 2019-03-01 17:02 | HP ---
PATIENT: JUNO MCDONALD MEDICAL RECORD: [id number] ACCOUNT: [id number] LOCATION:[facility] : 56 ADMISSION DATE: 01/31/19 PCP: OXANA MCCRARY MD HISTORY AND PHYSICAL EXAMINATION DIAGNOSES: 1. Unstable angina. 2. Coronary artery disease. 3. Previous percutaneous transluminal coronary angioplasty stent. 4. Hypertension. 5. Hyperlipidemia. 6. Smoking. HISTORY OF PRESENT ILLNESS: Mr. Mcdonald is well known to us with a past history of coronary artery disease, previous PTCA stent. He has been having increasing episodes of chest pain, chest discomfort compatible with angina that has now escalated and is having episodes of rest pain. He is a class IV anginal symptomatology just like that of his previous angina. FAMILY HISTORY: Positive for premature coronary artery disease and hypertension. SOCIAL HISTORY: Lives in the [place] area. He does continue to smoke. REVIEW OF SYSTEMS: The patient reports easy bruising but reports no swollen glands. The patient reports no fever, no night sweats, no significant weight gain, no significant weight loss. No significant exercise tolerance. The patient reports no dry eyes, no irritation, no vision change. Patient reports no difficulty hearing and no ear pain. Patient reports no frequent nose bleeds or nose and sinus problems. Patient reports on arm pain on exertion. No shortness of breath while lying down. No history of heart murmur. Patient reports no cough, no wheezing or coughing up blood. Patient reports no abdominal pain, no vomiting. Normal appetite. No diarrhea and not vomiting blood. No nausea and no constipation. Patient reports no incontinence. No difficulty urinating. No hematuria. No increased frequency. Patient reports no muscle aches. No weakness, no arthralgias, no back pain. No swelling of the extremities. Patient reports no abnormal mole, no jaundice, no rashes. Reports no loss of consciousness. No weakness and no numbness. No seizures, dizziness, or headaches. The patient reports no depression, no sleep disturbance, feeling safe in a relationship and no alcohol abuse. Patient reports on fatigue. Reports no runny nose or sinus pressure. No itching, no hives, and no frequent sneezing. PHYSICAL EXAMINATION: CONSTITUTIONAL/GENERAL APPEARANCE: Well nourished, well developed, appears stated age. EYES: Lids and conjunctivae noninjected. No discharge. No pallor. ENT: Lips within normal limit. No cyanosis. No pallor. NECK: Carotid arteries, bilateral normal upstroke. No bruits. No thrills. No jugular venous pressure or distention. CERVICAL LYMPH NODES: Nontender. Nonenlarged. THYROID: Not enlarged. No nodules. CARDIOVASCULAR: Precordial exam, nondisplaced. No heaves or pericardial thrills. Rate and rhythm, regular. Heart sounds, normal S1, normal S2. No S3, no gallop, no rub. Systolic murmur, not heard. Diastolic murmur, not heard. HISTORY AND PHYSICAL [id number] JUNO MCDONALD RESPIRATORY: Respiratory effort, unlabored. Normal curvature. No thoracic deformity. No chest wall tenderness. Percussion, resonant. Auscultation, clear. No wheezes, no rales, no rhonchi. ABDOMEN: Soft, nondistended, nontender. No abdominal pain, no vomiting and normal appetite. MUSCULOSKELETAL: No joint tenderness, normal gait, normal tone. SKIN: Warm and dry. OVERALL IMPRESSION: Unstable anginal symptomatology class IV. We will proceed with coronary angiography. Further care depends upon findings of the angiography. TRANSINT:[id number] Voice Confirmation ID: [id number] DOCUMENT ID: [id number] TRESSA NUNEZ MD at 1702 CC: [id number] DICTATION DATE: 03/01/19 1206 [employer]: 03/01/19 1235 DEP CLI 02/01/19 [id number] [place] [address]
== END 2019-02-01 20:48 | disposition home or self-care (01) ==
LOC: OBSVTIME → D.ER 20:41 → D.OPS 20:41 → D.M2 22:11 → OBSVTIME 22:11 → D.ER 22:11 → D.M2 22:11 → D.ER 23:04 → D.M2 02-01 20:48 → D.OPS 02-01 20:48 → D.M2 02-01 20:48
PROVIDERS: Emergency Medicine; Internal Medicine Interventional Cardiology; ATTEND Internal Medicine Interventional Cardiology
DX: I25.110 Atherosclerotic heart disease of native coronary artery with unstable angina pectoris (principal); F17.200 Nicotine dependence, unspecified, uncomplicated; I10 Essential (primary) hypertension; E78.5 Hyperlipidemia, unspecified

== ENCOUNTER 2019-12-09 05:31 | Day surgery (SDC) | payer MEDICAID ==
[~2019-12-09] VITALS: Ht 175.3 cm; Wt 70.3 kg
[~2019-12-09 05:31] MED LIST changes: +BAYER CHEWABLE81 MG PO; +HYDROXYZINE HCL50 MG PO; +NITROSTAT0.4 MG SL; +PRAVACHOL20 MG PO; +XANAX2 MG PO
[2019-12-09 06:06] LABS: BASOPHILS 0.4 % (0-2); EOSINOPHILS 2.9 % (0-7); HEMATOCRIT 46.1 % (42.0-54.0); HEMOGLOBIN 15.5 g/dL (13.5-17.5); IMMATURE GRANULOCYTES 0.3 % (0-5); LYMPHOCYTES 31.3 % (15-50); MCH 29.8 pg (26.0-34.0); MCHC 33.6 g/dL (31.0-37.0); MCV 88.5 fL (80.0-100.0); MEAN PLATELET VOLUME 10.5 fL (7.4-10.4); MONOCYTES 7.6 % (2-11); NEUTROPHILS 57.5 % (40-80); PLATELET COUNT 182 10x3/uL (130-400); RBC 5.21 10x6/uL (4.20-6.10); RDW 14.6 % (11.5-14.5); WBC 7.5 10x3/uL (4.8-10.8)
[2019-12-09 06:16] LABS: ANION GAP 9.3 mmol/L (8-16); CALCIUM 8.6 mg/dL (8.5-10.1); CARBON DIOXIDE 32.8 mmol/L (21.0-32.0); CREATININE - SERUM 1.3 mg/dL (0.6-1.3); POTASSIUM - SERUM 4.1 mmol/L (3.5-5.1)
[2019-12-09 07:19] VITALS: BP 126/76; Ht 175.3 cm; Wt 70.3 kg
[2019-12-09] MEDS ORDERED: ZOFRAN8 MG PO (07:32)
--- NOTE | 2019-12-09 14:36 | NUR ---
IV D/C'D WITH CANNULA INTACT, PRESSURE HELD AND DRSG PLACED.DISCHARGE INSTRUCTION GIVEN AND PT VERBALIZED AM UNDERSTANDING. DISCHARGED HOME IN STABLE COMDITION AND WITHOUT C/O
--- NOTE | 2019-12-10 15:05 | OP ---
PATIENT NAME: JUNO CARRION MEDICAL RECORD: [id number] :56 LOCATION:[facility] ADMISSION DATE: SURGEON: ADIS TOVAR MD DATE OF OPERATION: 12/09/2019 PREOPERATIVE DIAGNOSES: 1. Indwelling port. 2. History of lymphoma. POSTOPERATIVE DIAGNOSES: 1. Indwelling port. 2. History of lymphoma. PROCEDURE: Excision of left subclavian vein port. SURGEON: Adis Tovar MD REPORT OF PROCEDURE: The patient's left chest was prepped and draped in sterile fashion. A transverse incision was made overlying the port. Electrocautery was used to dissect through the subcutaneous tissues down to the port. The port was then freed up from the surrounding tissues and the 3 sutures holding it in place were all excised. The port was eviscerated through the wound. A 3-0 Vicryl was used as a pursestring at the base of the catheter insertion site. The catheter was then removed and the suture was pulled down tightly. We reapproximated the subcutaneous tissues with interrupted 3-0 Vicryl and the skin was closed with running subcutaneous 5-0 Monocryl. A 10 mL of 0.25% Marcaine with epinephrine were infused into the surrounding tissues and the wound was dressed appropriately. COMPLICATIONS: None. CONDITION: Stable. ANESTHESIA: General endotracheal and local. BLOOD LOSS: Minimal. TRANSINT:[id number] Voice Confirmation ID: [id number] DOCUMENT ID: [id number] ADIS TOVAR MD at 1505 CC: SANDRA ZEPEDA MD [id number] DICTATION DATE: 12/09/19828 [employer]ESS[employer]ENCES: 12/09/19 0851 [facility] 12/09/19 [id number] [place] [address]
== END 2019-12-09 10:00 | disposition home or self-care (01) ==
LOC: D.OPS 05:31
PROVIDERS: ATTEND Surgery
DX: Z85.72 Personal history of non-Hodgkin lymphomas (principal)

== ENCOUNTER 2020-06-25 10:19 | Emergency (ER) | payer MEDICAID ==
[~2020-06-25] VITALS: Ht 175.3 cm; Wt 72.7 kg
[~2020-06-25 10:19] MED LIST changes: +ZOFRAN8 MG PO
[2020-06-25 10:27] VITALS: Ht 175.3 cm; Wt 72.7 kg
[2020-06-25 11:15] VITALS: BP 126/79
== END 2020-06-25 11:15 | disposition home or self-care (01) ==
LOC: D.ER 10:19
DX: T80.89XA Other complications following infusion, transfusion and therapeutic injection, initial encounter (principal); M79.642 Pain in left hand